=== PATIENT | female | born 1930 | race Caucasian/White ===

== ENCOUNTER 2019-12-12 13:32 | Inpatient (IN) | payer MEDICARE, BC ==
--- NOTE | 2019-12-12 14:29 | PDOC ---
History of Present Illness - General Chief Complaint: Injury Stated Complaint: Injury - History of Present Illness Initial Comments: 12/12/19 14:59 HPI: 89 y/o F with hx of HTN, melanoma in remission, recently diagnoses aortic stenosis, HLD, dementia BIBEMS because she was found down and presumed unwitnessed fall. Family at bedside providing history and stating that patient is also acutely altered and not acting appropriate. She was unable to stand after the fall and required assist. Prior to the fall, patient was taken to PCP 4 days ago for leg swelling and erythema and was diagnosed with BL LE cellulitis and prescribed with doxy and clinda. Has been taking medication, however, wound has worsened and now appears ulcerated with worsening erythema and swelling to the BL knees. Family reports chills and increased urinary freq. Denies fever, chest pain, SOB, dysuria, change in PO. PMHx: as noted above ROS: as noted SHx: Denies tobacco use; no alcohol use; no rec drugs Allergies: NKDA ROS: GENERAL/CONSTITUTIONAL: +chills. No weakness. HEAD, EYES, EARS, NOSE AND THROAT: No change in vision. No ear pain or discharge. No sore throat. CARDIOVASCULAR: No chest pain or shortness of breath RESPIRATORY: No cough, wheezing, or hemoptysis. GASTROINTESTINAL: No nausea, vomiting, diarrhea or constipation. GENITOURINARY: No dysuria, frequency, or change in urination. MUSCULOSKELETAL: No joint or muscle swelling or pain. No neck or back pain. SKIN: +rash NEUROLOGIC: No headache, vertigo, or change in strength/sensation. ENDOCRINE: No increased thirst. No abnormal weight change HEMATOLOGIC/LYMPHATIC: No anemia, easy bleeding, or history of blood clots. ALLERGIC/IMMUNOLOGIC: No hives or skin allergy. PE: GENERAL: Awake, a&ox2, agitated HEAD: 1cm forehead abrasion with mild hematoma without tpp, left cheek abrasion EYES: EOMI, sclera anicteric, conjunctiva clear ENT: Auricles normal inspection, hearing grossly normal, nares patent, oropharynx clear without exudates. Moist mucosa NECK: Normal ROM, no lymphadenopathy LUNGS: No increased work of breathing, symmetrical chest rise, clear to auscultation bilaterally, no wheezes, crackles or rhonchi HEART: Regular rate, regular rhythm, normal S1 and S2, no murmur, peripheral pulses 2+ and equal bilaterally. ABDOMEN: Soft, nondistended, nontender, normoactive bowel sounds. No guarding, no rebound. No masses. No CVAT MUSCULOSKELETAL: FROM NEUROLOGICAL: Cranial nerves II through XII grossly intact. Normal speech, normal gait, no focal sensorimotor deficits SKIN: LLE with ulcerated wound with good granulation without drainage or purulence at base of 2nd/3rd toes, significant erythema to midshin BL, pitting edema 2+ to the knees, ttp, 2+ pulses, warm to palpation Past History - Past Medical History Allergies/Adverse Reactions: Allergies Allergy/AdvReac Type Severity Reaction Status Date / Time Penicillins Allergy Severe dyspnea Verified 12/12/19 15:50 and rash Home Medications: Ambulatory Orders Clindamycin [Cleocin -] 300 mg PO TID 12/12/19 Doxycycline Hyclate 100 mg PO BID 12/12/19 COPD: No Dementia: Yes - Immunization History Immunization Up to Date: Yes - Psycho Social/Smoking Cessation Hx Smoking History: Former smoker Have you smoked in the past 12 months: No Information on smoking cessation initiated: No Hx Alcohol Use: No Drug/Substance Use Hx: No *Physical Exam - Vital Signs Last Vital Signs Temp Pulse Resp BP Pulse Ox 97 F L 92 H 19 127/86 99 12/12/19 13:50 12/12/19 13:50 12/12/19 13:50 12/12/19 13:50 12/12/19 13:50 ED Treatment Course - LABORATORY CBC & Chemistry Diagram: 12/12/19 15:00 12/12/19 15:00 Medical Decision Making - Medical Decision Making 12/12/19 18:55 89 y/o F with hx of HTN, melanoma in remission, recently diagnoses aortic stenosis, HLD, dementia BIBEMS because she was found down and presumed unwitnessed fall; also with worsening cellulitis despite doxy and clinda. VSS, AF. PE with LLE with ulcerated wound with good granulation without drainage or purulence at base of 2nd/3rd toes, significant erythema to midshin BL, pitting edema 2+ to the knees, ttp, 2+ pulses, warm to palpation. -sepsis order set, BL tib-fib and ankle-foot XR -iv vanc and aztreonam, ivf 12/12/19 18:57 patient agitated and refusing all care; discussed with daughter who is proxy and will haldol 2mg 12/12/19 18:57 patient still agitated, will give 3mg haldol 12/12/19 18:58 patient cooperative labs sent XRs performed; negative for gas on review with senior resident EKG: afib HR 108, no rosita/d 12/12/19 19:01 lactate 3.8 admitted to [facility] tele Discharge - Discharge Information Problems reviewed: Yes Clinical Impression/Diagnosis: Cellulitis Qualifiers: Site of cellulitis: extremity Site of cellulitis of extremity: lower extremity Laterality: unspecified laterality Qualified Code(s): L03.119 - Cellulitis of unspecified part of limb Atrial fibrillation Qualifiers: Atrial fibrillation type: unspecified Qualified Code(s): I48.91 - Unspecified atrial fibrillation - Follow up/Referral - Patient Discharge Instructions - Post Discharge Activity
[2019-12-12] MEDS ORDERED: AZTREONAM 1 GM in DEXTROSE 5%-WATER - 50 ML IVPB ONE (14:56)
[2019-12-12] MEDS ORDERED: VANCOMYCIN 1 GM in D5W (PRE-DOCKED) 1,000 MG/250 ML IVPB ONE (14:56)
[2019-12-12] MEDS ORDERED: SODIUM CHLORIDE 1,000 ML IV STA (14:58)
[2019-12-12] MEDS ORDERED: HALOPERIDOL LACTATE 5 MG/ML IM ONE (15:19)
[2019-12-12] MEDS ORDERED: HALOPERIDOL LACTATE 5 MG/ML ONE (15:23)
[2019-12-12] MEDS ORDERED: AZTREONAM 1 GM VIAL (RESTRICTED TO ID) ONE (15:55)
[2019-12-12] MEDS ORDERED: VANCOMYCIN 1 GRAM (PRE-DOCKED) 1,000 MG/250 ML BAG IVPB ONE (15:55)
[2019-12-12 16:44] LABS: VENOUS PC02 60.4 mmHg (38-52); VENOUS PH 7.23 (7.31-7.41)
[2019-12-12 16:45] LABS: BASO % 0.7 % (0-2.0); EOS % 3.1 % (0-4.5); HEMOGLOBIN 12.4 GM/dL (10.7-15.3); LYMPH % 16.2 % (8-40); MCH 30.5 pg (25.7-33.7); MCHC 31.8 g/dl (32.0-36.0); MEAN CELL VOLUME 95.9 fl (80-96); MEAN PLT VOLUME 8.6 fl (7.5-11.1); MONO % 9.8 % (3.8-10.2); NEUT % 70.2 % (42.8-82.8); PLATELET COUNT 235 K/MM3 (134-434); RBC 4.07 M/mm3 (3.60-5.2); RDW 17.4 % (11.6-15.6); VENOUS PO2 < 49 mmHg (28-48); WHITE BLOOD COUNT 7.9 K/mm3 (4.0-10.0)
--- NOTE | 2019-12-12 16:58 | PDOC ---
Documentation entered by Ricarda Carbajal SCRIBE, acting as scribe for Keith Robertson MD. Keith Robertson MD: This documentation has been prepared by the Solomon reynoso Brenda, SCRIBE, under my direction and personally reviewed by me in its entirety. I confirm that the documentation accurately reflects all work, treatment, procedures, and medical decision making performed by me. Attending Attestation - Resident Resident Name: Kayli Sheldon - ED Attending Attestation I have performed the following: I have examined & evaluated the patient, The case was reviewed & discussed with the resident, I agree w/resident's findings & plan, Exceptions are as noted - HPI HPI: 12/12/19 16:16 The patient is an 89 year old female with a significant PMH of HTN, HLD, melanoma, recently diagnosed aortic stenosis and dementia who presents to the ED brought in by daughter for evaluation of progressively worsening erythemetous and edemetous bilateral feet that has failed outpatient therapy. Patient is demented at baseline so was not able to give history. Patient has been on oral antibiotics for 4 days of LE cellulites. Patient denies any symptoms. Allergies: Penicillin - Physicial Exam PE: 12/12/19 16:20 Vitals: Triage vital signs reviewed General Appearance: No acute distress, well nourished, well developed Head: Atraumatic Eyes: Pupils equal reactive round, extraocular movement intact Neck: Supple; No nuchal rigidity Chest Wall: Nontender Cardiac: Regular rate and rhythm, no murmurs, no rubs, no gallops Lungs: Clear to auscultation bilateral, good air movement bilaterally Abdomen: Soft, nondistended, normal bowel sounds, nontender to palpation Genitourinary: Rectal: Exam deferred Extremities: (+) Bilateral LE Cellulites. Full range of motion to all extremities, no cyanosis, clubbing. Skin: Warm and dry, no rashes or lesions, no rash, no petechiae Neuro: AOX3 Psych: Normal mood, normal affect - Medical Decision Making 12/12/19 17:53 Given failure of p.o. antibiotics will admit to medicine for IV antibiotics and further management. 89 years old with lower extremity cellulitis progressively worsening despite p.o. antibiotics as an outpatient Patient with moderate dementia [place] ordered for anxiolysis to safely obtain medical work-up and evaluation
[2019-12-12 17:16] LABS: ALBUMIN 2.9 g/dl (3.4-5.0); BILIRUBIN,TOTAL 0.4 mg/dL (0.2-1); BLOOD UREA NITROGEN 39.3 mg/dL (7-18); CALCIUM 8.4 mg/dL (8.5-10.1); CREATININE 1.1 mg/dL (0.55-1.3); POTASSIUM 4.1 mmol/L (3.5-5.1); TOT PROT 5.5 g/dl (6.4-8.2)
[2019-12-12 17:21] LABS: INR 1.12 (0.83-1.09); PROTHROMBIN TIME (PATIENT) 13.2 SEC (9.7-13.0)
--- NOTE | 2019-12-12 19:36 | HP ---
Admitting History and Physical - Primary Care Physician PCP: Cherry Giraldo - Admission History of Present Illness: 89 y/o F with hx of HTN, melanoma in remission, recently diagnoses aortic stenosis, HLD, dementia BIBEMS because she was found down and presumed unwitnessed fall. Family at bedside providing history and stating that patient is also acutely altered and not acting appropriate. She was unable to stand after the fall and required assist. Prior to the fall, patient was taken to PCP 4 days ago for leg swelling and erythema and was diagnosed with BL LE cellulitis and prescribed with doxy and clinda. Has been taking medication, however, wound has worsened and now appears ulcerated with worsening erythema and swelling to the BL knees. Family reports chills and increased urinary freq. Denies fever, chest pain, SOB, dysuria, change in PO. - Past Medical History Cardiovascular: Yes: HTN Dermatology: Yes: Melanoma, Other - Smoking History Smoking history: Former smoker Have you smoked in the past 12 months: No - Alcohol/Substance Use Hx Alcohol Use: No Home Medications - Allergies Allergies/Adverse Reactions: Allergies Allergy/AdvReac Type Severity Reaction Status Date / Time Penicillins Allergy Severe dyspnea Verified 12/12/19 15:50 and rash - Home Medications Home Medications: Ambulatory Orders Clindamycin [Cleocin -] 300 mg PO TID 12/12/19 Doxycycline Hyclate 100 mg PO BID 12/12/19 Physical Examination Vital Signs: Vital Signs Temperature 97.1 F L 12/12/19 18:25 Pulse Rate 88 12/12/19 18:25 Respiratory Rate 19 12/12/19 18:25 Blood Pressure 113/82 12/12/19 18:25 O2 Sat by Pulse Oximetry (%) 99 12/12/19 18:25 Constitutional: Yes: No Distress HENT: Yes: Atraumatic Neck: Yes: Supple Cardiovascular: Yes: Regular Rate and Rhythm Respiratory: Yes: CTA Bilaterally Gastrointestinal: Yes: Normal Bowel Sounds Extremities: Yes: Erythema Edema: Yes Edema: LLE: 1+, RLE: 1+ Labs: CBC, BMP 12/12/19 15:00 12/12/19 15:00 Imaging - Results X-ray: Report Reviewed Cat Scan: Report Reviewed Problem List - Problems (1) Atrial fibrillation Assessment/Plan: on BB cardio on board Code(s): I48.91 - UNSPECIFIED ATRIAL FIBRILLATION Qualifiers: Atrial fibrillation type: unspecified Qualified Code(s): I48.91 - Unspecified atrial fibrillation (2) Cellulitis Assessment/Plan: iv abx id consult Code(s): L03.90 - CELLULITIS, UNSPECIFIED Qualifiers: Site of cellulitis: extremity Site of cellulitis of extremity: lower extremity Laterality: unspecified laterality Qualified Code(s): L03.119 - Cellulitis of unspecified part of limb Assessment/Plan Laboratory Tests 12/12/19 12/12/19 12/12/19 15:00 15:00 15:00 WBC 7.9 RBC 4.07 Hgb 12.4 Hct 39.0 MCV 95.9 MCH 30.5 MCHC 31.8 L RDW 17.4 H Plt Count 235 MPV 8.6 Absolute Neuts (auto) 5.5 Neutrophils % 70.2 Lymphocytes % 16.2 Monocytes % 9.8 Eosinophils % 3.1 Basophils % 0.7 Nucleated RBC % 0 PT with INR 13.20 H INR 1.12 H PTT (Actin FS) 31.0 VBG pH POC VBG pCO2 POC VBG pO2 VBG HCO3 VBG O2 Sat (Andrew) VBG Base Excess Sodium 141 Potassium 4.1 Chloride 110 H Carbon Dioxide 24 Anion Gap 8 BUN 39.3 H Creatinine 1.1 Est GFR (CKD-EPI)AfAm 51.91 Est GFR (CKD-EPI)NonAf 44.79 Random Glucose 96 Lactic Acid Calcium 8.4 L Total Bilirubin 0.4 AST 35 ALT 32 Alkaline Phosphatase 79 Troponin I 0.04 Total Protein 5.5 L Albumin 2.9 L 12/12/19 12/12/19 15:00 15:00 WBC RBC Hgb Hct MCV MCH MCHC RDW Plt Count MPV Absolute Neuts (auto) Neutrophils % Lymphocytes % Monocytes % Eosinophils % Basophils % Nucleated RBC % PT with INR INR PTT (Actin FS) VBG pH 7.23 L POC VBG pCO2 60.4 H POC VBG pO2 < 49 H VBG HCO3 24.2 VBG O2 Sat (Andrew) 45.4 L VBG Base Excess -3.9 L Sodium Potassium Chloride Carbon Dioxide Anion Gap BUN Creatinine Est GFR (CKD-EPI)AfAm Est GFR (CKD-EPI)NonAf Random Glucose Lactic Acid 3.8 H* Calcium Total Bilirubin AST ALT Alkaline Phosphatase Troponin I Total Protein Albumin Active Medications Generic Name Dose Route Start Last Admin Trade Name Freq PRN Reason Stop Dose Admin Heparin Sodium (Porcine) 5,000 unit 12/12/19 22:00 Heparin - SQ BID IKE Active Medications Generic Name Dose Route Start Last Admin Trade Name Anderq PRN Reason Stop Dose Admin Acetaminophen 650 mg 12/12/19 21:12 Tylenol - PO Q6H PRN FEVER Haloperidol 2 mg 12/12/19 22:58 12/12/19 23:39 Haldol Injection (Fast Acting) - IM 2 mg Q6H PRN Administration AGITATION Heparin Sodium (Porcine) 5,000 unit 12/12/19 22:00 12/13/19 09:55 Heparin - SQ 5,000 unit BID IKE Administration Aztreonam 1 gm/ Dextrose 50 mls @ 100 mls/hr 12/13/19 12:45 12/13/19 13:37 IVPB 100 mls/hr Q8H-IV IKE Administration Protocol Metoprolol Tartrate 25 mg 12/13/19 15:45 12/13/19 16:15 Lopressor - PO 25 mg BID IKE Administration Metoprolol Tartrate 5 mg 12/13/19 15:36 Lopressor Injection - IVPUSH Q4H PRN TACHYCARDIA
[2019-12-12] MEDS ORDERED: ACETAMINOPHEN 325 MG TABLET (FP) PO PRN (21:12)
[2019-12-12] MEDS: HEPARIN NA (PORCINE) 5,000 UNITS/ML 1ML VIAL SQ SCH (23:38)
[2019-12-12] MEDS: HALOPERIDOL LACTATE 5 MG/ML IM PRN (23:39)
[2019-12-12] MEDS ORDERED: LORazepam 2 MG/ML SDV VIAL IM STA (23:59)
[2019-12-13] MEDS ORDERED: METOPROLOL TARTRATE 5 MG/5 ML VIAL IVPUSH ONE (00:45)
[2019-12-13 02:04] VITALS: BMI 25.1
[2019-12-13 07:20] LABS: BASO % 0.9 % (0-2.0); EOS % 2.9 % (0-4.5); HEMATOCRIT 35.5 % (32.4-45.2); HEMOGLOBIN 11.7 GM/dL (10.7-15.3); LYMPH % 15.4 % (8-40); MCH 30.7 pg (25.7-33.7); MCHC 32.9 g/dl (32.0-36.0); MEAN CELL VOLUME 93.2 fl (80-96); MEAN PLT VOLUME 8.7 fl (7.5-11.1); MONO % 6.7 % (3.8-10.2); NEUT % 74.1 % (42.8-82.8); PLATELET COUNT 236 K/MM3 (134-434); RDW 17.5 % (11.6-15.6); WHITE BLOOD COUNT 7.8 K/mm3 (4.0-10.0)
[2019-12-13 08:05] LABS: ALBUMIN 2.7 g/dl (3.4-5.0); BILIRUBIN,TOTAL 0.6 mg/dL (0.2-1); BLOOD UREA NITROGEN 36.7 mg/dL (7-18); CALCIUM 8.1 mg/dL (8.5-10.1); CREATININE 1.1 mg/dL (0.55-1.3); POTASSIUM 3.9 mmol/L (3.5-5.1); TOT PROT 5.1 g/dl (6.4-8.2)
[2019-12-13] MEDS: HEPARIN NA (PORCINE) 5,000 UNITS/ML 1ML VIAL SQ SCH ×2 (09:55→23:30)
--- NOTE | 2019-12-13 12:03 | EKG ---
Test Reason : Blood Pressure : / mmHG Vent. Rate : 108 BPM Atrial Rate : 117 BPM P-R Int : 000 ms QRS Dur : 090 ms QT Int : 342 ms P-R-T Axes : 000 -23 172 degrees QTc Int : 458 ms ATRIAL FIBRILLATION WITH RAPID VENTRICULAR RESPONSE NONSPECIFIC T WAVE ABNORMALITY ABNORMAL ECG Confirmed by MD EDGARDO, ROSEY ([id number]) on 12/13/2019 12:03:13 PM Referred By: Confirmed By:ROSEY REYNOSO MD
--- NOTE | 2019-12-13 12:41 | CON.ID ---
Consult Consult Specialty:: infectious diseases Referred by:: Reason for Consultation:: b/l cellulititis of the legs,falls - History of Present Illness Chief Complaint: weakness,falls and swelling fo the legs History of Present Illness: 89 y/o F with hx of HTN, melanoma in remission, recently diagnoses aortic stenosis, HLD, dementia was brought to the hospital because of fall and was found down though unwitnessed She was unable to stand after the fall and required assist. Prior to the fall, patient was taken to PCP 4 days ago for leg swelling and erythema and was diagnosed with BL LE cellulitis and prescribed with doxy and clinda. Has been taking medication, however, worsening erythema and swelling Family reports chills and increased urinary freq. Denies fever, chest pain, SOB, dysuria, change in PO. - History Source History Provided By: Patient, Medical Record Limitations to Obtaining History: Dementia - Past Medical History Cardio/Vascular: Yes: HTN Dermatology: Yes: Melanoma, Other - Alcohol/Substance Use Hx Alcohol Use: No - Smoking History Smoking history: Former smoker Have you smoked in the past 12 months: No Home Medications - Allergies Allergies/Adverse Reactions: Allergies Allergy/AdvReac Type Severity Reaction Status Date / Time Penicillins Allergy Severe dyspnea Verified 12/12/19 15:50 and rash - Home Medications Home Medications: Ambulatory Orders Clindamycin [Cleocin -] 300 mg PO TID 12/12/19 Doxycycline Hyclate 100 mg PO BID 12/12/19 Review of Systems Unable to obtain ROS, reason: unable to obtain Physical Exam Vital Signs: Vital Signs Temperature 98.0 F 12/13/19 08:30 Pulse Rate 118 H 12/13/19 08:30 Respiratory Rate 18 12/13/19 08:30 Blood Pressure 136/83 12/13/19 08:30 O2 Sat by Pulse Oximetry (%) 96 12/13/19 08:30 Constitutional: Yes: Well Nourished, No Distress, Calm Cardiovascular: Yes: Pulse Irregular Respiratory: Yes: Regular, CTA Bilaterally Gastrointestinal: Yes: Normal Bowel Sounds, Soft Musculoskeletal: Yes: WNL Extremities: Yes: Erythema, Other Neurological: Yes: Alert, Oriented Psychiatric: Yes: Alert, Oriented Labs: CBC, BMP 12/13/19 05:45 12/13/19 05:45 Imaging - Results Chest X-ray: Report Reviewed, Image Reviewed X-ray: Report Reviewed, Image Reviewed Assessment/Plan Problem List - Problems (1) Atrial fibrillation Code(s): I48.91 - UNSPECIFIED ATRIAL FIBRILLATION Qualifiers: Atrial fibrillation type: unspecified Qualified Code(s): I48.91 - Unspecified atrial fibrillation (2) Cellulitis Code(s): L03.90 - CELLULITIS, UNSPECIFIED Qualifiers: Site of cellulitis: extremity Site of cellulitis of extremity: lower extremity Laterality: unspecified laterality Qualified Code(s): L03.119 - Cellulitis of unspecified part of limb swelling of the legs dementis plan will start on aztreonam elevation of the leg rest as per the team await for all cx reports awaiting for urine to be send
[2019-12-13] MEDS ORDERED: DEXTROSE 5%-WATER - 50 ML IVPB ONE ×2 (13:24→17:19)
[2019-12-13] MEDS ORDERED: AZTREONAM 1 GM VIAL (RESTRICTED TO ID) ONE ×2 (13:24→17:19)
[2019-12-13] MEDS: AZTREONAM 1 GM in DEXTROSE 5%-WATER - 50 ML IVPB SCH ×2 (13:37→17:24)
--- NOTE | 2019-12-13 15:20 | PN ---
Progress Note (short form) - Note Progress Note: Chief Complaint: Events noted, notes reviewed, patient with known organic brain syndrome/dementia unable to provide history, denies any chest pain or dyspnea, atrial fibrillation is noted with rapid ventricular response History of Present Illness: Seen and examined on telemetry. Full consult dictated Medications: Current Medications Acetaminophen (Tylenol -) 650 mg PO Q6H PRN PRN Reason: FEVER Haloperidol (Haldol Injection (Fast Acting) -) 2 mg IM Q6H PRN PRN Reason: AGITATION Last Admin: 12/12/19 23:39 Dose: 2 mg Heparin Sodium (Porcine) (Heparin -) 5,000 unit SQ BID IKE Last Admin: 12/13/19 09:55 Dose: 5,000 unit Aztreonam 1 gm/ Dextrose 50 mls @ 100 mls/hr IVPB Q8H-IV IKE; Protocol Last Admin: 12/13/19 13:37 Dose: 100 mls/hr Review of Systems Unable to obtain Vital Signs: Last Vital Signs Temp Pulse Resp BP Pulse Ox 97.3 F L 137 H 18 122/84 96 12/13/19 15:17 12/13/19 15:17 12/13/19 15:17 12/13/19 15:17 12/13/19 08:30 Intake & Output 12/10/19 12/11/19 12/12/19 12/13/19 23:59 23:59 23:59 23:59 Intake Total 1770 Balance 1770 Weight 146 lb 6.4 oz Neck: Supple Negative JVD No Bruit Respiratory: Diminished breath sounds at the bases bilaterally Cardiovascular: S1 S2 irregularly irregular grade 2/6 systolic ejection murmur Gastrointestinal: Soft Benign Normal Bowel Sounds Ext: Edema bilateral foot redness Labs: Troponin, BNP 12/12/19 15:00 Troponin I 0.04 CBC, BMP 12/13/19 05:45 12/13/19 05:45 Hepatic Panel Total Bilirubin 0.6 mg/dL (0.2-1) 12/13/19 05:45 AST 33 U/L (15-37) 12/13/19 05:45 ALT 30 U/L (13-61) 12/13/19 05:45 Alkaline Phosphatase 70 U/L (45-117) 12/13/19 05:45 Albumin 2.7 g/dl (3.4-5.0) L 12/13/19 05:45 INR, PTT INR 1.12 (0.83-1.09) H 12/12/19 15:00 Assessment/Plan ASSESSMENT: 1. Paroxysmal atrial fibrillation with rapid ventricular response [id number] score of 3-4 2. 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 Diastolic left ventricular dysfunction with clinical class 0 [place] [employer] classification left ventricular failure 4. Heart murmur related to aortic valve disease/aortic valve sclerosis- possible aortic valve stenosis/clinically unlikely to be significant 5. HTN 6. Hypercholesterolemia 7. Fall unclear if associated loss of consciousness 8. Chronic kidney disease 9. History of psoriasis/superimposed cellulitis PLAN: 1. Initiate Lopressor therapy and dose titration as needed, hemodynamics permitting 2. Considering patient's [id number] score of 3-4 anticoagulation therapy with DOAC's/Eliquis is recommended unless it is absolutely contraindicated 3. Antibiotics as per the primary team 4. Echocardiography for evaluation of left ventricular systolic function and the above-noted valvular pathology Above was reviewed in detail with patient's daughter Deborah Theodore/Telephone number [phone] Luis Menchaca M.D.
[2019-12-13] MEDS ORDERED: METOPROLOL TARTRATE 5 MG/5 ML VIAL IVPUSH PRN (15:36)
[2019-12-13] MEDS: METOPROLOL TARTRATE 25 MG TABLET (FP) PO SCH ×3 (16:15→23:47)
--- NOTE | 2019-12-13 16:25 | CONS ---
DATE OF CONSULTATION: 12/13/2019 REQUESTING PHYSICIAN: Cherry Giraldo MD CHIEF COMPLAINT: Unwitnessed fall at home, evaluation of new onset paroxysmal atrial fibrillation. HISTORY: History was obtained from the chart. Patient with known history of organic brain syndrome, dementia. No family member available. An 89-year-old female with known history of probable coronary artery disease, angina pectoris, diastolic left ventricular dysfunction with clinical class 0 [place] [employer] classification left ventricular failure. LVEF between 60%-65% on echocardiography performed March 02, 2013. Aortic stenosis sclerosis, questionable aortic valve stenosis, hypertensive cardiovascular disease, organic brain syndrome, dementia, degenerative joint disease, psoriasis. Was noted at home to have sustained a fall and was unable to ambulate in view of which was brought to [facility] Emergency Room for further evaluation and management. Upon evaluation, patient was noted to have evidence of paroxysmal atrial fibrillation with rapid ventricular response. Patient currently does not appear to be in any distress. She denies any chest discomfort. Patient denies any dyspnea. Patient denies any palpitations. No additional history is obtainable. Patient was confused and agitated last night in view of which Haldol therapy was administered. PAST MEDICAL HISTORY: Probable coronary artery disease, angina pectoris, diastolic left ventricular dysfunction with clinical class 0 [place] [employer] classification left ventricular failure, hypertensive cardiovascular disease, organism brain syndrome, dementia, degenerative joint disease, psoriasis. SOCIAL HISTORY: Nonsmoker. Social alcohol intake. FAMILY HISTORY: Positive for cerebrovascular disease. ALLERGIES: PENICILLIN. MEDICAL THERAPY: Currently includes acetaminophen 650 mg every 6 hours as needed, Haldol 2 mg intramuscular injection every 6 hours as needed, subcutaneous heparin 5000 units twice a day, aztreonam 1 g every 8 hours for bilateral foot cellulitis. REVIEW OF SYSTEMS: Unable to obtain in view of the above-noted history of organic brain syndrome. PHYSICAL EXAMINATION: Vital Signs: Blood pressure is 122/84 mmHg, pulse rate of 137 beats per minute. Head and Neck: Pupils equal, reactive to light and accommodation. Extraocular muscles are intact. Anicteric sclerae. Negative JVD. No bruits appreciated. Chest: Diminished breath sounds at the bases bilaterally. Cardiovascular: S1, S2. Irregularly irregular. Grade 2/6 systolic ejection murmur. No clicks or gallops. Abdomen: Soft, benign. Normoactive bowel sounds. Extremities: Bilateral edema. Foot redness. Electrocardiogram revealed atrial fibrillation with rapid ventricular response and nonspecific ST segment and T-wave abnormality. X-rays were noted. CBC revealed white cell count 7.8, hemoglobin 11.7, platelet count 236. INR 1.12. Basic metabolic profile revealed sodium 140, potassium 3.9, BUN 36.7, creatinine 1.1. Estimated GFR 44.79, glucose 85. ASSESSMENT: 1. Paroxysmal atrial fibrillation with rapid ventricular response, CHADS2-VASc score of 3-4. 2. Probable coronary artery disease, angina pectoris. 3. Diastolic left ventricular dysfunction with clinical class 0 [place] [employer] classification left ventricular failure. 4. Heart murmur related to aortic valve disease, aortic valve sclerosis, possible aortic valve stenosis. Clinically unlikely to be significant. 5. Hypertension. 6. Probable hypercholesterolemia. 7. Fall, unclear if associated with loss of consciousness. 8. Chronic kidney disease. 9. History of psoriasis with superimposed cellulitis. RECOMMENDATION: 1. Initiation of Lopressor therapy orally and IV Lopressor therapy administration as needed. Dose titration hemodynamics permitting. 2. Considering patient's CHADS2-VASc score of 3-4, anticoagulation therapy with Eliquis is recommended unless it is absolutely contraindicated. 3. Antibiotics as per the primary team. 4. Echocardiography for evaluation of left ventricular systolic function and the above-noted valvular pathology. Thank you for kind referral. TATO JONES M.D. [id number]
[2019-12-13 16:41] LABS: EPI CELLS 0.6 /HPF (0-5/HPF); HYALINE CASTS 2 /lpf (0-8); URINE APPEARANCE CLEAR; URINE BACTERIA 0.5 /hpf (NEGATIVE); URINE BILIRUBIN NEGATIVE (NEGATIVE); URINE COLOR YELLOW; URINE GLUCOSE (UA) NEGATIVE (NEGATIVE); URINE KETONE NEGATIVE (NEGATIVE); URINE LEUK ESTERASE NEGATIVE (NEGATIVE); URINE NITRITE NEGATIVE (NEGATIVE); URINE PROTEIN 2+ (NEGATIVE); URINE RBC 1 /hpf (0-4); URINE UROBILINOGEN 0.2 mg/dL (0.2-1.0); URINE WBC 1 /hpf (0-5)
--- NOTE | 2019-12-13 17:10 | PN ---
Progress Note, Physician - Current Medication List Current Medications: Active Medications Acetaminophen (Tylenol -) 650 mg PO Q6H PRN PRN Reason: FEVER Haloperidol (Haldol Injection (Fast Acting) -) 2 mg IM Q6H PRN PRN Reason: AGITATION Last Admin: 12/12/19 23:39 Dose: 2 mg Heparin Sodium (Porcine) (Heparin -) 5,000 unit SQ BID IKE Last Admin: 12/13/19 09:55 Dose: 5,000 unit Aztreonam 1 gm/ Dextrose 50 mls @ 100 mls/hr IVPB Q8H-IV IKE; Protocol Last Admin: 12/13/19 13:37 Dose: 100 mls/hr Metoprolol Tartrate (Lopressor -) 25 mg PO BID IKE Last Admin: 12/13/19 16:15 Dose: 25 mg Metoprolol Tartrate (Lopressor Injection -) 5 mg IVPUSH Q4H PRN PRN Reason: TACHYCARDIA - Objective Vital Signs: Vital Signs Temperature 97.3 F L 12/13/19 15:17 Pulse Rate 137 H 12/13/19 15:17 Respiratory Rate 18 12/13/19 15:17 Blood Pressure 122/84 12/13/19 15:17 O2 Sat by Pulse Oximetry (%) 96 12/13/19 08:30 Constitutional: Yes: No Distress HENT: Yes: Atraumatic Neck: Yes: Supple Cardiovascular: Yes: Regular Rate and Rhythm Respiratory: Yes: CTA Bilaterally Gastrointestinal: Yes: Normal Bowel Sounds Extremities: Yes: Other (cellulitis b/l raji) Neurological: Yes: Alert Labs: CBC, BMP 12/13/19 05:45 12/13/19 05:45 INR, PTT INR 1.12 (0.83-1.09) H 12/12/19 15:00 Problem List - Problems (1) Atrial fibrillation Assessment/Plan: on BB cardio on board Code(s): I48.91 - UNSPECIFIED ATRIAL FIBRILLATION Qualifiers: Atrial fibrillation type: unspecified Qualified Code(s): I48.91 - Unspecified atrial fibrillation (2) Cellulitis Assessment/Plan: iv abx id consult Code(s): L03.90 - CELLULITIS, UNSPECIFIED Qualifiers: Site of cellulitis: extremity Site of cellulitis of extremity: lower extremity Laterality: unspecified laterality Qualified Code(s): L03.119 - Cellulitis of unspecified part of limb (3) Dementia Assessment/Plan: not on any meds Code(s): F03.90 - UNSPECIFIED DEMENTIA WITHOUT BEHAVIORAL DISTURBANCE Qualifiers: Dementia type: unspecified type
[2019-12-13] MEDS: HALOPERIDOL LACTATE 5 MG/ML IM PRN (23:29)
[2019-12-14] MEDS ORDERED: DEXTROSE 5%-WATER - 50 ML IVPB ONE ×3 (02:12→17:01)
[2019-12-14] MEDS ORDERED: AZTREONAM 1 GM VIAL (RESTRICTED TO ID) ONE ×3 (02:12→17:01)
[2019-12-14] MEDS: AZTREONAM 1 GM in DEXTROSE 5%-WATER - 50 ML IVPB SCH ×3 (02:17→17:09)
[2019-12-14] MEDS: METOPROLOL TARTRATE 25 MG TABLET (FP) PO SCH ×3 (09:20→21:59)
[2019-12-14] MEDS: HEPARIN NA (PORCINE) 5,000 UNITS/ML 1ML VIAL SQ SCH (09:21)
--- NOTE | 2019-12-14 10:22 | PN ---
Progress Note, Physician History of Present Illness: Patient with known organic brain syndrome/dementia unable to provide history, denies any chest pain or dyspnea, remains in atrial fibrillation with rapid ventricular response. - Current Medication List Current Medications: Active Medications Acetaminophen (Tylenol -) 650 mg PO Q6H PRN PRN Reason: FEVER Haloperidol (Haldol Injection (Fast Acting) -) 2 mg IM Q6H PRN PRN Reason: AGITATION Last Admin: 12/13/19 23:29 Dose: 2 mg Heparin Sodium (Porcine) (Heparin -) 5,000 unit SQ BID IKE Last Admin: 12/14/19 09:21 Dose: 5,000 unit Aztreonam 1 gm/ Dextrose 50 mls @ 100 mls/hr IVPB Q8H-IV IKE; Protocol Last Admin: 12/14/19 09:20 Dose: 100 mls/hr Metoprolol Tartrate (Lopressor -) 25 mg PO BID IKE Last Admin: 12/14/19 09:20 Dose: 25 mg Metoprolol Tartrate (Lopressor Injection -) 5 mg IVPUSH Q4H PRN PRN Reason: TACHYCARDIA Last Admin: 12/13/19 18:15 Dose: 5 mg - Objective Vital Signs: Vital Signs Temperature 97.6 F 12/14/19 10:00 Pulse Rate 126 H 12/14/19 10:00 Respiratory Rate 18 12/14/19 10:00 Blood Pressure 149/93 12/14/19 10:00 O2 Sat by Pulse Oximetry (%) 98 12/13/19 21:00 Constitutional: Yes: No Distress, Calm, Thin Neck: Yes: Supple Cardiovascular: Yes: Tachycardia, Pulse Irregular Respiratory: Yes: Regular, Diminished Gastrointestinal: Yes: Normal Bowel Sounds, Soft Edema: No Labs: CBC, BMP 12/13/19 05:45 12/13/19 05:45 INR, PTT INR 1.12 (0.83-1.09) H 12/12/19 15:00 - ....Imaging EKG: Report Reviewed (Tele: Rapid afib) Problem List - Problems (1) Dementia Code(s): F03.90 - UNSPECIFIED DEMENTIA WITHOUT BEHAVIORAL DISTURBANCE Qualifiers: Dementia type: unspecified type (2) Atrial fibrillation Code(s): I48.91 - UNSPECIFIED ATRIAL FIBRILLATION Qualifiers: Atrial fibrillation type: unspecified Qualified Code(s): I48.91 - Unspecified atrial fibrillation (3) Cellulitis Code(s): L03.90 - CELLULITIS, UNSPECIFIED Qualifiers: Site of cellulitis: extremity Site of cellulitis of extremity: lower extremity Laterality: unspecified laterality Qualified Code(s): L03.119 - Cellulitis of unspecified part of limb Assessment/Plan 1. Paroxysmal atrial fibrillation with rapid ventricular response [id number] score of 3-4 2. 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 Diastolic left ventricular dysfunction with clinical class 0 [place] [employer] classification left ventricular failure 4. Heart murmur related to aortic valve disease/aortic valve sclerosis- possible aortic valve stenosis/clinically unlikely to be significant 5. HTN 6. Hypercholesterolemia 7. Fall unclear if associated loss of consciousness 8. Chronic kidney disease 9. History of psoriasis with superimposed LE cellulitis PLAN: 1. Increase Lopressor 25 tid with dose titration as needed, hemodynamics permitting 2. Considering patient's [id number] score of 3-4 anticoagulation therapy with DOAC's/Eliquis 2.5 bid is recommended 3. Empiric antibiotics as per the primary team 4. Echocardiography for evaluation of left ventricular systolic function and the above-noted valvular pathology Above was reviewed in detail with patient's daughter Deborah Theodore/Telephone number [phone]
--- NOTE | 2019-12-14 12:02 | PN ---
Progress Note, Physician History of Present Illness: stable no new issues - Current Medication List Current Medications: Active Medications Acetaminophen (Tylenol -) 650 mg PO Q6H PRN PRN Reason: FEVER Haloperidol (Haldol Injection (Fast Acting) -) 2 mg IM Q6H PRN PRN Reason: AGITATION Last Admin: 12/13/19 23:29 Dose: 2 mg Heparin Sodium (Porcine) (Heparin -) 5,000 unit SQ BID IKE Last Admin: 12/14/19 09:21 Dose: 5,000 unit Aztreonam 1 gm/ Dextrose 50 mls @ 100 mls/hr IVPB Q8H-IV IKE; Protocol Last Admin: 12/14/19 09:20 Dose: 100 mls/hr Metoprolol Tartrate (Lopressor -) 25 mg PO BID IKE Last Admin: 12/14/19 09:20 Dose: 25 mg Metoprolol Tartrate (Lopressor Injection -) 5 mg IVPUSH Q4H PRN PRN Reason: TACHYCARDIA Last Admin: 12/13/19 18:15 Dose: 5 mg - Objective Vital Signs: Vital Signs Temperature 97.6 F 12/14/19 10:00 Pulse Rate 126 H 12/14/19 10:00 Respiratory Rate 18 12/14/19 10:00 Blood Pressure 149/93 12/14/19 10:00 O2 Sat by Pulse Oximetry (%) 98 12/13/19 21:00 Constitutional: Yes: No Distress, Calm Cardiovascular: Yes: S1, S2 Respiratory: Yes: Regular, CTA Bilaterally Gastrointestinal: Yes: Normal Bowel Sounds, Soft Musculoskeletal: Yes: WNL Extremities: Yes: Erythema, Other Neurological: Yes: Alert, Oriented Psychiatric: Yes: Alert, Oriented Labs: CBC, BMP 12/13/19 05:45 12/13/19 05:45 INR, PTT INR 1.12 (0.83-1.09) H 12/12/19 15:00 Assessment/Plan Problem List - Problems (1) Atrial fibrillation Code(s): I48.91 - UNSPECIFIED ATRIAL FIBRILLATION Qualifiers: Atrial fibrillation type: unspecified Qualified Code(s): I48.91 - Unspecified atrial fibrillation (2) Cellulitis Code(s): L03.90 - CELLULITIS, UNSPECIFIED Qualifiers: Site of cellulitis: extremity Site of cellulitis of extremity: lower extremity Laterality: unspecified laterality Qualified Code(s): L03.119 - Cellulitis of unspecified part of limb swelling of the legs dementis plan ct abx elevation of the legs rest as per the team
--- NOTE | 2019-12-14 13:27 | PN ---
Progress Note, Physician - Current Medication List Current Medications: Active Medications Acetaminophen (Tylenol -) 650 mg PO Q6H PRN PRN Reason: FEVER Apixaban (Eliquis -) 2.5 mg PO BID IKE Haloperidol (Haldol Injection (Fast Acting) -) 2 mg IM Q6H PRN PRN Reason: AGITATION Last Admin: 12/13/19 23:29 Dose: 2 mg Aztreonam 1 gm/ Dextrose 50 mls @ 100 mls/hr IVPB Q8H-IV IKE; Protocol Last Admin: 12/14/19 09:20 Dose: 100 mls/hr Metoprolol Tartrate (Lopressor Injection -) 5 mg IVPUSH Q4H PRN PRN Reason: TACHYCARDIA Last Admin: 12/13/19 18:15 Dose: 5 mg Metoprolol Tartrate (Lopressor -) 25 mg PO TID IKE Last Admin: 12/14/19 13:18 Dose: 25 mg - Objective Vital Signs: Vital Signs Temperature 97.6 F 12/14/19 10:00 Pulse Rate 126 H 12/14/19 10:00 Respiratory Rate 18 12/14/19 10:00 Blood Pressure 149/93 12/14/19 10:00 O2 Sat by Pulse Oximetry (%) 95 12/14/19 09:00 Constitutional: Yes: No Distress HENT: Yes: Atraumatic Neck: Yes: Supple Cardiovascular: Yes: Regular Rate and Rhythm Respiratory: Yes: CTA Bilaterally Gastrointestinal: Yes: Normal Bowel Sounds Extremities: Yes: Other (cellulitis improving) Neurological: Yes: Alert Labs: CBC, BMP 12/13/19 05:45 12/13/19 05:45 INR, PTT INR 1.12 (0.83-1.09) H 12/12/19 15:00 Problem List - Problems (1) Atrial fibrillation Assessment/Plan: on BB on Ac Code(s): I48.91 - UNSPECIFIED ATRIAL FIBRILLATION Qualifiers: Atrial fibrillation type: unspecified Qualified Code(s): I48.91 - Unspecified atrial fibrillation (2) Cellulitis Assessment/Plan: iv abx id consult Code(s): L03.90 - CELLULITIS, UNSPECIFIED Qualifiers: Site of cellulitis: extremity Site of cellulitis of extremity: lower extremity Laterality: unspecified laterality Qualified Code(s): L03.119 - Cellulitis of unspecified part of limb (3) Dementia Code(s): F03.90 - UNSPECIFIED DEMENTIA WITHOUT BEHAVIORAL DISTURBANCE Qualifiers: Dementia type: unspecified type Assessment/Plan spoke to daughter FLAKO RUTLEDGE IN DETAIL [phone]
--- NOTE | 2019-12-14 15:28 | ECHO ---
Name: TERESITA KHAN Exam:Adult Echocardiogram Study Date: 12/14/2019 10:55 AM Age: 89 yrs Reason For Study: A-Fib Height: 64 in Weight: 146 lb BSA: 1.7 m2 MMode/2D Measurements & Calculations IVSd: 1.1 cm Ao root diam: 2.9 cm LVIDd: 4.3 cm LA dimension: 3.3 cm LVIDs: 3.7 cm LVPWd: 1.4 cm EDV(Teich): 84.2 ml LVOT diam: 2.0 cm ESV(Teich): 59.0 ml LAV (MOD-bp): 88.8 ml Doppler Measurements & Calculations MV V2 max: 139.0 cm/sec MV E max angélica: 148.0 cm/sec MV max P.7 mmHg MV A max angélica: 74.9 cm/sec MV V2 mean: 94.4 cm/sec MV E/A: 2.0 MV mean P.1 mmHg MV dec time: 0.13 sec MV V2 VTI: 15.0 cm Ao V2 max: 212.8 cm/sec AI max angélica: 428.9 cm/sec Ao max P.1 mmHg AI max P.7 mmHg Ao V2 mean: 142.4 cm/sec AI dec slope: 408.9 cm/sec2 Ao mean P.6 mmHg Ao V2 VTI: 36.6 cm AI P1/2t: 307.3 msec LEE(V,D): 1.2 cm2 LV V1 max P.4 mmHg MR max angélica: 490.1 cm/sec LV V1 max: 78.1 cm/sec MR max P.1 mmHg TR max angélica: 212.3 cm/sec PA V2 max: 76.0 cm/sec TR max P.5 mmHg PA max P.3 mmHg PI Vmax: 114.0 cm/sec Procedure A two-dimensional transthoracic echocardiogram with color flow and Doppler was performed. Left Ventricle The left ventricular size, thickness and function are normal. The left ventricular ejection fraction is normal. Regional wall motion abnormalities cannot be excluded due to limited visualization. Right Ventricle The right ventricle is not well visualized. Atria The left atrium is severely dilated. The right atrium is severely dilated. 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 Mitral Valve There is moderate mitral valve thickening. Cannot exclude MS. There is moderate to severe mitral regurgitation. Tricuspid Valve There is mild to moderate tricuspid valve thickening. There is no tricuspid stenosis. There is severe tricuspid regurgitation. Right ventricular systolic pressure is normal. Aortic Valve The aortic valve is trileaflet. There is moderate aortic valve thickening. There is moderate aortic sclerosis.;. Hemodynamically significant valvular aortic stenosis cannot be excluded. Moderate to sev ere aortic regurgitation. Pulmonic Valve The pulmonic valve is not well visualized. There is no pulmonic valvular stenosis. Trace pulmonic jacinto vular regurgitation. Interpretation Summary There is moderate to severe mitral regurgitation. There is moderate mitral valve thickening. Right ventricular systolic pressure is normal. The aortic valve is trileaflet. There is moderate aortic valve thickening. There is moderate aortic sclerosis.; There is severe tricuspid regurgitation. The left atrium is severely dilated. The right atrium is severely dilated. The atrial septum is aneurysmal. Moderate to severe aortic regurgitation. Hemodynamically significant valvular aortic stenosis cannot be excluded. Cannot exclude MS The left ventricular size, thickness and function are normal The left ventricular ejection fraction is normal. Regional wall motion abnormalities cannot be excluded due to limited visualization. MD Jonathan Andrea 12/14/2019 03:27 PM
[2019-12-14] MEDS: APIXABAN 2.5 MG TABLET PO SCH (21:59)
--- NOTE | 2019-12-14 22:21 | CON.NEURO ---
Consult Consult Specialty:: NEUROLOGY-STACEY MARTIN - History of Present Illness History of Present Illness: 89 y/o F with hx of HTN, melanoma in remission, recently diagnoses aortic stenosis, HLD, dementia BIBEMS because she was found down and presumed unwitnessed fall. Family at bedside providing history and stating that patient is also acutely altered and not acting appropriate. She was unable to stand after the fall and required assist. Prior to the fall, patient was taken to PCP 4 days ago for leg swelling and erythema and was diagnosed with BL LE cellulitis and prescribed with doxy and clinda. Has been taking medication, however, wound has worsened and now appears ulcerated with worsening erythema and swelling to the BL knees. Family reports chills and increased urinary freq. Denies fever, chest pain, SOB, dysuria, change in PO. Pt. has had a dx. of dementia but cognitive decline has accelerated during past one year. she is unable to relate detailed hx. Keeps repeating she wants to go home, that she came to the hospital because "someone was following me". - Past Medical History Cardio/Vascular: Yes: HTN Dermatology: Yes: Melanoma, Other - Alcohol/Substance Use Hx Alcohol Use: No - Smoking History Smoking history: Former smoker Have you smoked in the past 12 months: No Home Medications - Allergies Allergies/Adverse Reactions: Allergies Allergy/AdvReac Type Severity Reaction Status Date / Time Penicillins Allergy Severe dyspnea Verified 12/12/19 15:50 and rash - Home Medications Home Medications: Ambulatory Orders Clindamycin [Cleocin -] 300 mg PO TID 12/12/19 Doxycycline Hyclate 100 mg PO BID 12/12/19 Physical Exam-Neuro Vital Signs: Vital Signs Temperature 97.5 F L 12/14/19 14:00 Pulse Rate 109 H 12/14/19 14:00 Respiratory Rate 18 12/14/19 14:00 Blood Pressure 137/69 12/14/19 14:00 O2 Sat by Pulse Oximetry (%) 95 12/14/19 09:00 Labs: CBC, BMP 12/13/19 05:45 12/13/19 05:45 INR, PTT INR 1.12 (0.83-1.09) H 12/12/19 15:00 - Neuro Exam Level Of Consciousness: Yes: Alert, Oriented to Person Eyes: Yes: PERRL Speech: Other (+ tangential speech) Dominant Hand: Right Mini Mental Exam: + paranoid delusions, + markedly impaired attention/ concentration. STM-0/3. MMSE-7(skewed 2/2 supervening delirium). Cranial Nerves II-XII Intact: Yes Gag: Present DTR's: 1+ Left Bicep, 1+ Right Bicep, 1+ Left Tricep, 1+ Right Tricep, 1+ Left Brachioradialis, 1+ Right Brachioradialis, 1+ Left Achilles, 1+ Right Achilles Babinski: Present (bilat) Motor Strength: 5/5: Left Arm, Right Arm, Left Leg, Right Leg Gait: Other (refused to walk) Assessment/Plan Pt. has a dementia, her mental status is worse 2/2 supervening encephalopathy due to infection/metabolioc derangements. Suggest-B12 level, would place on Namenda 5mg bid after her encephalopathy has improved-5mg bid and increase to 10mg bid after a month. Difficult to tell whether dementia is AD(likely) vs Lewy Body dz. namenda may target agitation and possibly delusions too. Thank you, Aida Gutiérrez MD
[2019-12-14] MEDS: HALOPERIDOL LACTATE 5 MG/ML IM PRN (22:47)
[2019-12-15] MEDS ORDERED: DEXTROSE 5%-WATER - 50 ML IVPB ONE ×3 (00:50→18:22)
[2019-12-15] MEDS ORDERED: AZTREONAM 1 GM VIAL (RESTRICTED TO ID) ONE ×3 (00:50→18:22)
[2019-12-15] MEDS: AZTREONAM 1 GM in DEXTROSE 5%-WATER - 50 ML IVPB SCH ×3 (01:35→18:26)
[2019-12-15] MEDS: METOPROLOL TARTRATE 25 MG TABLET (FP) PO SCH ×3 (06:47→21:14)
--- NOTE | 2019-12-15 10:08 | PN ---
Progress Note, Physician History of Present Illness: Patient with known organic brain syndrome/dementia unable to provide history, denies any chest pain or dyspnea, remains in atrial fibrillation with rapid ventricular response. - Current Medication List Current Medications: Active Medications Acetaminophen (Tylenol -) 650 mg PO Q6H PRN PRN Reason: FEVER Apixaban (Eliquis -) 2.5 mg PO BID IKE Last Admin: 12/14/19 21:59 Dose: 2.5 mg Haloperidol (Haldol Injection (Fast Acting) -) 2 mg IM Q6H PRN PRN Reason: AGITATION Last Admin: 12/14/19 22:47 Dose: 2 mg Aztreonam 1 gm/ Dextrose 50 mls @ 100 mls/hr IVPB Q8H-IV IKE; Protocol Last Admin: 12/15/19 01:35 Dose: Not Given Metoprolol Tartrate (Lopressor Injection -) 5 mg IVPUSH Q4H PRN PRN Reason: TACHYCARDIA Last Admin: 12/13/19 18:15 Dose: 5 mg Metoprolol Tartrate (Lopressor -) 25 mg PO TID IKE Last Admin: 12/15/19 06:47 Dose: 25 mg - Objective Vital Signs: Vital Signs Temperature 97.4 F L 12/14/19 22:00 Pulse Rate 92 H 12/15/19 06:00 Respiratory Rate 20 12/15/19 06:00 Blood Pressure 150/78 12/15/19 06:00 O2 Sat by Pulse Oximetry (%) 100 12/14/19 21:00 Constitutional: Yes: No Distress, Calm, Thin Neck: Yes: Supple Cardiovascular: Yes: Tachycardia, Pulse Irregular, Murmur (2/6 SM) Respiratory: Yes: Regular, CTA Bilaterally Gastrointestinal: Yes: Normal Bowel Sounds, Soft Edema: No Labs: CBC, BMP 12/13/19 05:45 12/13/19 05:45 INR, PTT INR 1.12 (0.83-1.09) H 12/12/19 15:00 - ....Imaging Chest X-ray: Pending Problem List - Problems (1) Dementia Code(s): F03.90 - UNSPECIFIED DEMENTIA WITHOUT BEHAVIORAL DISTURBANCE Qualifiers: Dementia type: unspecified type (2) Atrial fibrillation Code(s): I48.91 - UNSPECIFIED ATRIAL FIBRILLATION Qualifiers: Atrial fibrillation type: unspecified Qualified Code(s): I48.91 - Unspecified atrial fibrillation (3) Cellulitis Code(s): L03.90 - CELLULITIS, UNSPECIFIED Qualifiers: Site of cellulitis: extremity Site of cellulitis of extremity: lower extremity Laterality: unspecified laterality Qualified Code(s): L03.119 - Cellulitis of unspecified part of limb Assessment/Plan 12/14/2019 Echocardiography: Normal LV size and fxn, , mod-severe MR, severe TR , severe DAMEON, ALEXIS, mod-severe AR, unable to exclude hemodynamically sig 1. Paroxysmal atrial fibrillation with rapid ventricular response [id number] score of 3-4 2. 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 Diastolic dysfunction with valvular cardiomyopathy, euvolemic 4. Mod-severe MR, severe TR, mod-severe AR, unable to exclude hemodynamically sig 5. HTN 6. Hypercholesterolemia 7. 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 Chronic kidney disease 9. History of psoriasis with superimposed LE cellulitis PLAN: 1. Increased results Lopressor 25 tid with dose titration as needed, hemodynamics permitting 2. Considering patient's [id number] score of 3-4 anticoagulation therapy with DOAC's/Eliquis 2.5 bid is recommended 3. Empiric antibiotics as per the primary team 4. F/u CXR
[2019-12-15] MEDS: APIXABAN 2.5 MG TABLET PO SCH ×2 (12:01→21:14)
--- NOTE | 2019-12-15 13:20 | PN ---
Progress Note, Physician History of Present Illness: stable improving - Current Medication List Current Medications: Active Medications Acetaminophen (Tylenol -) 650 mg PO Q6H PRN PRN Reason: FEVER Apixaban (Eliquis -) 2.5 mg PO BID [facility] Last Admin: 12/14/19 21:59 Dose: 2.5 mg Haloperidol (Haldol Injection (Fast Acting) -) 2 mg IM Q6H PRN PRN Reason: AGITATION Last Admin: 12/14/19 22:47 Dose: 2 mg Aztreonam 1 gm/ Dextrose 50 mls @ 100 mls/hr IVPB Q8H-IV IKE; Protocol Last Admin: 12/15/19 01:35 Dose: Not Given Metoprolol Tartrate (Lopressor Injection -) 5 mg IVPUSH Q4H PRN PRN Reason: TACHYCARDIA Last Admin: 12/13/19 18:15 Dose: 5 mg Metoprolol Tartrate (Lopressor -) 25 mg PO TID IKE Last Admin: 12/15/19 06:47 Dose: 25 mg - Objective Vital Signs: Vital Signs Temperature 98.5 F 12/15/19 10:00 Pulse Rate 68 12/15/19 10:00 Respiratory Rate 20 12/15/19 10:00 Blood Pressure 124/68 12/15/19 10:00 O2 Sat by Pulse Oximetry (%) 97 12/15/19 09:00 Constitutional: Yes: No Distress, Calm Cardiovascular: Yes: S1, S2 Respiratory: Yes: Regular, CTA Bilaterally Gastrointestinal: Yes: Normal Bowel Sounds, Soft Musculoskeletal: Yes: Other Extremities: Yes: Erythema Neurological: Yes: Alert, Oriented Psychiatric: Yes: Alert, Oriented Labs: CBC, BMP 12/13/19 05:45 12/13/19 05:45 INR, PTT INR 1.12 (0.83-1.09) H 12/12/19 15:00 Assessment/Plan Problem List - Problems (1) Atrial fibrillation Code(s): I48.91 - UNSPECIFIED ATRIAL FIBRILLATION Qualifiers: Atrial fibrillation type: unspecified Qualified Code(s): I48.91 - Unspecified atrial fibrillation (2) Cellulitis Code(s): L03.90 - CELLULITIS, UNSPECIFIED Qualifiers: Site of cellulitis: extremity Site of cellulitis of extremity: lower extremity Laterality: unspecified laterality Qualified Code(s): L03.119 - Cellulitis of unspecified part of limb swelling of the legs dementis plan ct abx elevation of the legs rest as per the team patient improving
--- NOTE | 2019-12-15 15:02 | PN ---
Progress Note, Physician - Current Medication List Current Medications: Active Medications Acetaminophen (Tylenol -) 650 mg PO Q6H PRN PRN Reason: FEVER Apixaban (Eliquis -) 2.5 mg PO BID [facility] Last Admin: 12/14/19 21:59 Dose: 2.5 mg Haloperidol (Haldol Injection (Fast Acting) -) 2 mg IM Q6H PRN PRN Reason: AGITATION Last Admin: 12/14/19 22:47 Dose: 2 mg Aztreonam 1 gm/ Dextrose 50 mls @ 100 mls/hr IVPB Q8H-IV IKE; Protocol Last Admin: 12/15/19 01:35 Dose: Not Given Metoprolol Tartrate (Lopressor Injection -) 5 mg IVPUSH Q4H PRN PRN Reason: TACHYCARDIA Last Admin: 12/13/19 18:15 Dose: 5 mg Metoprolol Tartrate (Lopressor -) 25 mg PO TID IKE Last Admin: 12/15/19 06:47 Dose: 25 mg - Objective Vital Signs: Vital Signs Temperature 98.5 F 12/15/19 10:00 Pulse Rate 68 12/15/19 10:00 Respiratory Rate 12/15/19 10:00 Blood Pressure 124/68 12/15/19 10:00 O2 Sat by Pulse Oximetry (%) 97 12/15/19 09:00 Constitutional: Yes: No Distress HENT: Yes: Atraumatic Neck: Yes: Supple Cardiovascular: Yes: Regular Rate and Rhythm Respiratory: Yes: CTA Bilaterally Gastrointestinal: Yes: Normal Bowel Sounds Extremities: Yes: Other (cellulitis improving) Neurological: Yes: Alert Labs: CBC, BMP 12/13/19 05:45 12/13/19 05:45 INR, PTT INR 1.12 (0.83-1.09) H 12/12/19 15:00 Problem List - Problems (1) Atrial fibrillation Assessment/Plan: on BB on Ac Code(s): I48.91 - UNSPECIFIED ATRIAL FIBRILLATION Qualifiers: Atrial fibrillation type: unspecified Qualified Code(s): I48.91 - Unspecified atrial fibrillation (2) Cellulitis Assessment/Plan: iv abx id consult Code(s): L03.90 - CELLULITIS, UNSPECIFIED Qualifiers: Site of cellulitis: extremity Site of cellulitis of extremity: lower extremity Laterality: unspecified laterality Qualified Code(s): L03.119 - Cellulitis of unspecified part of limb (3) Dementia Assessment/Plan: neuro consult done Code(s): F03.90 - UNSPECIFIED DEMENTIA WITHOUT BEHAVIORAL DISTURBANCE Qualifiers: Dementia type: unspecified type
[2019-12-15] MEDS: HALOPERIDOL LACTATE 5 MG/ML IM PRN (23:05)
[2019-12-16] MEDS ORDERED: AZTREONAM 1 GM VIAL (RESTRICTED TO ID) ONE ×3 (03:07→17:22)
[2019-12-16] MEDS ORDERED: DEXTROSE 5%-WATER - 50 ML IVPB ONE ×3 (03:07→17:22)
[2019-12-16] MEDS: AZTREONAM 1 GM in DEXTROSE 5%-WATER - 50 ML IVPB SCH ×3 (03:33→17:41)
[2019-12-16] MEDS: METOPROLOL TARTRATE 25 MG TABLET (FP) PO SCH ×3 (06:10→21:35)
--- NOTE | 2019-12-16 10:03 | PN ---
Progress Note, Physician History of Present Illness: Patient with known organic brain syndrome/dementia unable to provide history, denies any chest pain or dyspnea, atrial fibrillation now with improved ventricular response after Lopressor uptitration. - Current Medication List Current Medications: Active Medications Acetaminophen (Tylenol -) 650 mg PO Q6H PRN PRN Reason: FEVER Apixaban (Eliquis -) 2.5 mg PO BID [facility] Last Admin: 12/15/19 21:14 Dose: 2.5 mg Haloperidol (Haldol Injection (Fast Acting) -) 2 mg IM Q6H PRN PRN Reason: AGITATION Last Admin: 12/15/19 23:05 Dose: 2 mg Aztreonam 1 gm/ Dextrose 50 mls @ 100 mls/hr IVPB Q8H-IV IKE; Protocol Last Admin: 12/16/19 03:33 Dose: 100 mls/hr Metoprolol Tartrate (Lopressor Injection -) 5 mg IVPUSH Q4H PRN PRN Reason: TACHYCARDIA Last Admin: 12/13/19 18:15 Dose: 5 mg Metoprolol Tartrate (Lopressor -) 25 mg PO TID IKE Last Admin: 12/16/19 06:10 Dose: Not Given - Objective Vital Signs: Vital Signs Temperature 98.2 F 12/16/19 02:00 Pulse Rate 97 H 12/16/19 06:00 Respiratory Rate 22 H 12/16/19 06:00 Blood Pressure 149/76 12/16/19 06:00 O2 Sat by Pulse Oximetry (%) 96 12/15/19 19:55 Constitutional: Yes: No Distress, Calm, Thin Neck: Yes: Supple Cardiovascular: Yes: Pulse Irregular, Murmur (2/6 SM) Respiratory: Yes: Regular, CTA Bilaterally Gastrointestinal: Yes: Normal Bowel Sounds, Soft Edema: No Labs: CBC, BMP 12/13/19 05:45 12/13/19 05:45 INR, PTT INR 1.12 (0.83-1.09) H 12/12/19 15:00 - ....Imaging Chest X-ray: Report Reviewed (Bibasilar ATX) EKG: Report Reviewed (Tele: Rate-controlled afib) Problem List - Problems (1) Dementia Code(s): F03.90 - UNSPECIFIED DEMENTIA WITHOUT BEHAVIORAL DISTURBANCE Qualifiers: Dementia type: unspecified type (2) Atrial fibrillation Code(s): I48.91 - UNSPECIFIED ATRIAL FIBRILLATION Qualifiers: Atrial fibrillation type: unspecified Qualified Code(s): I48.91 - Unspecified atrial fibrillation (3) Cellulitis Code(s): L03.90 - CELLULITIS, UNSPECIFIED Qualifiers: Site of cellulitis: extremity Site of cellulitis of extremity: lower extremity Laterality: unspecified laterality Qualified Code(s): L03.119 - Cellulitis of unspecified part of limb Assessment/Plan 12/14/2019 Echocardiography: Normal LV size and fxn, , mod-severe MR, severe TR , severe DAMEON, ALEXIS, mod-severe AR, unable to exclude hemodynamically sig 1. Paroxysmal atrial fibrillation with rapid ventricular response [id number] score of 3-4 2. 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 Diastolic dysfunction with valvular cardiomyopathy, euvolemic 4. Mod-severe MR, severe TR, mod-severe AR, unable to exclude hemodynamically sig 5. HTN 6. Hypercholesterolemia 7. 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 Chronic kidney disease 9. History of psoriasis with superimposed LE cellulitis PLAN: 1. Continue Lopressor 25 tid with dose titration as needed, hemodynamics permitting 2. Considering patient's [id number] score of 3-4 anticoagulation therapy with DOAC's/Eliquis 2.5 bid is recommended 3. Empiric antibiotics as per the primary team
[2019-12-16] MEDS: APIXABAN 2.5 MG TABLET PO SCH ×2 (10:35→21:35)
--- NOTE | 2019-12-16 11:38 | PN ---
Progress Note, Physician History of Present Illness: says she feels better leg has started to improve still a little red - Current Medication List Current Medications: Active Medications Acetaminophen (Tylenol -) 650 mg PO Q6H PRN PRN Reason: FEVER Apixaban (Eliquis -) 2.5 mg PO BID I[facility] Last Admin: 12/16/19 10:35 Dose: 2.5 mg Haloperidol (Haldol Injection (Fast Acting) -) 2 mg IM Q6H PRN PRN Reason: AGITATION Last Admin: 12/15/19 23:05 Dose: 2 mg Aztreonam 1 gm/ Dextrose 50 mls @ 100 mls/hr IVPB Q8H-IV IKE; Protocol Last Admin: 12/16/19 10:35 Dose: 100 mls/hr Metoprolol Tartrate (Lopressor Injection -) 5 mg IVPUSH Q4H PRN PRN Reason: TACHYCARDIA Last Admin: 12/13/19 18:15 Dose: 5 mg Metoprolol Tartrate (Lopressor -) 25 mg PO TID IKE Last Admin: 12/16/19 06:10 Dose: Not Given - Objective Vital Signs: Vital Signs Temperature 98.2 F 12/16/19 02:00 Pulse Rate 97 H 12/16/19 06:00 Respiratory Rate 22 H 12/16/19 06:00 Blood Pressure 149/76 12/16/19 06:00 O2 Sat by Pulse Oximetry (%) 96 12/15/19 19:55 Constitutional: Yes: No Distress, Calm Cardiovascular: Yes: S1, S2 Respiratory: Yes: Regular, CTA Bilaterally Gastrointestinal: Yes: Normal Bowel Sounds, Soft Musculoskeletal: Yes: Other Extremities: Yes: Erythema (of the legs) Neurological: Yes: Alert, Confusion, Other Labs: CBC, BMP 12/13/19 05:45 12/13/19 05:45 INR, PTT INR 1.12 (0.83-1.09) H 12/12/19 15:00 Assessment/Plan Problem List - Problems (1) Atrial fibrillation Code(s): I48.91 - UNSPECIFIED ATRIAL FIBRILLATION Qualifiers: Atrial fibrillation type: unspecified Qualified Code(s): I48.91 - Unspecified atrial fibrillation (2) Cellulitis Code(s): L03.90 - CELLULITIS, UNSPECIFIED Qualifiers: Site of cellulitis: extremity Site of cellulitis of extremity: lower extremity Laterality: unspecified laterality Qualified Code(s): L03.119 - Cellulitis of unspecified part of limb swelling of the legs dementia plan ct abx elevation of the legs rest as per the team patient improving zulma deescalte soon
--- NOTE | 2019-12-16 18:23 | PN ---
Progress Note, Physician - Current Medication List Current Medications: Active Medications Acetaminophen (Tylenol -) 650 mg PO Q6H PRN PRN Reason: FEVER Apixaban (Eliquis -) 2.5 mg PO BID [facility] Last Admin: 12/16/19 10:35 Dose: 2.5 mg Haloperidol (Haldol Injection (Fast Acting) -) 2 mg IM Q6H PRN PRN Reason: AGITATION Last Admin: 12/15/19 23:05 Dose: 2 mg Aztreonam 1 gm/ Dextrose 50 mls @ 100 mls/hr IVPB Q8H-IV IKE; Protocol Last Admin: 12/16/19 17:41 Dose: 100 mls/hr Metoprolol Tartrate (Lopressor Injection -) 5 mg IVPUSH Q4H PRN PRN Reason: TACHYCARDIA Last Admin: 12/13/19 18:15 Dose: 5 mg Metoprolol Tartrate (Lopressor -) 25 mg PO TID IKE Last Admin: 12/16/19 14:38 Dose: 25 mg - Objective Vital Signs: Vital Signs Temperature 98.8 F 12/16/19 10:00 Pulse Rate 89 12/16/19 10:00 Respiratory Rate 22 H 12/16/19 10:00 Blood Pressure 139/88 12/16/19 10:00 O2 Sat by Pulse Oximetry (%) 96 12/16/19 09:00 Constitutional: Yes: No Distress HENT: Yes: Atraumatic Neck: Yes: Supple Cardiovascular: Yes: Regular Rate and Rhythm Respiratory: Yes: CTA Bilaterally Gastrointestinal: Yes: Normal Bowel Sounds Extremities: Yes: Other (cellulitis b/l raji) Edema: No Peripheral Pulses WNL: Yes Neurological: Yes: Alert Labs: CBC, BMP 12/13/19 05:45 12/13/19 05:45 INR, PTT INR 1.12 (0.83-1.09) H 12/12/19 15:00 Problem List - Problems (1) Atrial fibrillation Assessment/Plan: on BB on Ac Code(s): I48.91 - UNSPECIFIED ATRIAL FIBRILLATION Qualifiers: Atrial fibrillation type: unspecified Qualified Code(s): I48.91 - Unspecified atrial fibrillation (2) Cellulitis Assessment/Plan: iv abx improving Code(s): L03.90 - CELLULITIS, UNSPECIFIED Qualifiers: Site of cellulitis: extremity Site of cellulitis of extremity: lower extremity Laterality: unspecified laterality Qualified Code(s): L03.119 - Cellulitis of unspecified part of limb (3) Dementia Assessment/Plan: neuro consult done Code(s): F03.90 - UNSPECIFIED DEMENTIA WITHOUT BEHAVIORAL DISTURBANCE Qualifiers: Dementia type: unspecified type Assessment/Plan spoke with daughter jessika carr in detail
[2019-12-17] MEDS: AZTREONAM 1 GM in DEXTROSE 5%-WATER - 50 ML IVPB SCH ×3 (00:59→18:13)
[2019-12-17] MEDS: METOPROLOL TARTRATE 25 MG TABLET (FP) PO SCH ×3 (06:39→21:06)
[2019-12-17] MEDS ORDERED: AZTREONAM 1 GM VIAL (RESTRICTED TO ID) ONE ×2 (08:34→16:53)
[2019-12-17] MEDS ORDERED: DEXTROSE 5%-WATER - 50 ML IVPB ONE ×2 (08:34→16:54)
[2019-12-17] MEDS: APIXABAN 2.5 MG TABLET PO SCH ×2 (09:11→21:05)
--- NOTE | 2019-12-17 10:01 | PN ---
Progress Note, Physician - Current Medication List Current Medications: Active Medications Acetaminophen (Tylenol -) 650 mg PO Q6H PRN PRN Reason: FEVER Apixaban (Eliquis -) 2.5 mg PO BID [facility] Last Admin: 12/17/19 09:11 Dose: 2.5 mg Haloperidol (Haldol Injection (Fast Acting) -) 2 mg IM Q6H PRN PRN Reason: AGITATION Last Admin: 12/15/19 23:05 Dose: 2 mg Aztreonam 1 gm/ Dextrose 50 mls @ 100 mls/hr IVPB Q8H-IV IKE; Protocol Last Admin: 12/17/19 09:11 Dose: 100 mls/hr Metoprolol Tartrate (Lopressor Injection -) 5 mg IVPUSH Q4H PRN PRN Reason: TACHYCARDIA Last Admin: 12/13/19 18:15 Dose: 5 mg Metoprolol Tartrate (Lopressor -) 25 mg PO TID I[facility] Last Admin: 12/17/19 06:39 Dose: 25 mg - Objective Vital Signs: Vital Signs Temperature 98.1 F 12/17/19 06:00 Pulse Rate 98 H 12/17/19 06:00 Respiratory Rate 20 12/17/19 06:00 Blood Pressure 130/72 12/17/19 06:00 O2 Sat by Pulse Oximetry (%) 97 12/16/19 22:00 Eyes: Yes: WNL, Conjunctiva Clear, EOM Intact HENT: Yes: WNL, Atraumatic, Normocephalic Neck: Yes: WNL, Supple, Trachea Midline Cardiovascular: Yes: Pulse Irregular, S1, S2 Respiratory: Yes: WNL, Regular, CTA Bilaterally Gastrointestinal: Yes: WNL, Normal Bowel Sounds Genitourinary: Yes: WNL Musculoskeletal: Yes: WNL Extremities: Yes: WNL Edema: No Integumentary: Yes: WNL ...Motor Strength: WNL Psychiatric: Yes: WNL Labs: CBC, BMP 12/13/19 05:45 12/13/19 05:45 INR, PTT INR 1.12 (0.83-1.09) H 12/12/19 15:00 Assessment/Plan Problem List - Problems (1) Dementia Code(s): F03.90 - UNSPECIFIED DEMENTIA WITHOUT BEHAVIORAL DISTURBANCE Qualifiers: Dementia type: unspecified type (2) Atrial fibrillation Code(s): I48.91 - UNSPECIFIED ATRIAL FIBRILLATION Qualifiers: Atrial fibrillation type: unspecified Qualified Code(s): I48.91 - Unspecified atrial fibrillation (3) Cellulitis Code(s): L03.90 - CELLULITIS, UNSPECIFIED Qualifiers: Site of cellulitis: extremity Site of cellulitis of extremity: lower extremity Laterality: unspecified laterality Qualified Code(s): L03.119 - Cellulitis of unspecified part of limb Assessment/Plan 12/14/2019 Echocardiography: Normal LV size and fxn, , mod-severe MR, severe TR , severe DAMEON, ALEXIS, mod-severe AR, unable to exclude hemodynamically sig 1. Paroxysmal atrial fibrillation with rapid ventricular response [id number] score of 3-4 2. 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 Diastolic dysfunction with valvular cardiomyopathy, euvolemic 4. Mod-severe MR, severe TR, mod-severe AR, unable to exclude hemodynamically sig 5. HTN 6. Hypercholesterolemia 7. 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 Chronic kidney disease 9. History of psoriasis with superimposed LE cellulitis PLAN: 1. Continue Lopressor 25 tid with dose titration as needed, hemodynamics permitting 2. Considering patient's [id number] score of 3-4 anticoagulation therapy with DOAC's/Eliquis 2.5 bid is recommended 3. Empiric antibiotics as per the primary team Coverage for dr. Shaikh
--- NOTE | 2019-12-17 12:58 | PN ---
Progress Note, Physician - Current Medication List Current Medications: Active Medications Acetaminophen (Tylenol -) 650 mg PO Q6H PRN PRN Reason: FEVER Apixaban (Eliquis -) 2.5 mg PO BID [facility] Last Admin: 12/17/19 09:11 Dose: 2.5 mg Haloperidol (Haldol Injection (Fast Acting) -) 2 mg IM Q6H PRN PRN Reason: AGITATION Last Admin: 12/15/19 23:05 Dose: 2 mg Aztreonam 1 gm/ Dextrose 50 mls @ 100 mls/hr IVPB Q8H-IV IKE; Protocol Last Admin: 12/17/19 09:11 Dose: 100 mls/hr Metoprolol Tartrate (Lopressor Injection -) 5 mg IVPUSH Q4H PRN PRN Reason: TACHYCARDIA Last Admin: 12/13/19 18:15 Dose: 5 mg Metoprolol Tartrate (Lopressor -) 25 mg PO TID [facility] Last Admin: 12/17/19 06:39 Dose: 25 mg - Objective Vital Signs: Vital Signs Temperature 98 F 12/17/19 10:00 Pulse Rate 98 H 12/17/19 10:00 Respiratory Rate 18 12/17/19 10:00 Blood Pressure 108/64 12/17/19 10:00 O2 Sat by Pulse Oximetry (%) 97 12/16/19 22:00 Constitutional: Yes: No Distress HENT: Yes: Atraumatic Neck: Yes: Supple Cardiovascular: Yes: Regular Rate and Rhythm Respiratory: Yes: CTA Bilaterally Extremities: Yes: Other (b/l raji cellulitis) Neurological: Yes: Alert, Oriented Labs: CBC, BMP 12/13/19 05:45 12/13/19 05:45 INR, PTT INR 1.12 (0.83-1.09) H 12/12/19 15:00 Problem List - Problems (1) Atrial fibrillation Assessment/Plan: on BB on Ac Code(s): I48.91 - UNSPECIFIED ATRIAL FIBRILLATION Qualifiers: Atrial fibrillation type: unspecified Qualified Code(s): I48.91 - Unspecified atrial fibrillation (2) Cellulitis Assessment/Plan: iv abx improving Code(s): L03.90 - CELLULITIS, UNSPECIFIED Qualifiers: Site of cellulitis: extremity Site of cellulitis of extremity: lower extremity Laterality: unspecified laterality Qualified Code(s): L03.119 - Cellulitis of unspecified part of limb (3) Dementia Assessment/Plan: neuro consult done Code(s): F03.90 - UNSPECIFIED DEMENTIA WITHOUT BEHAVIORAL DISTURBANCE Qualifiers: Dementia type: unspecified type
--- NOTE | 2019-12-17 15:25 | PN ---
Progress Note, Physician History of Present Illness: Pt is alert, afebrile. Has dull ache in b/l LE, erythema. - Current Medication List Current Medications: Active Medications Acetaminophen (Tylenol -) 650 mg PO Q6H PRN PRN Reason: FEVER Apixaban (Eliquis -) 2.5 mg PO BID [facility] Last Admin: 12/17/19 09:11 Dose: 2.5 mg Haloperidol (Haldol Injection (Fast Acting) -) 2 mg IM Q6H PRN PRN Reason: AGITATION Last Admin: 12/15/19 23:05 Dose: 2 mg Aztreonam 1 gm/ Dextrose 50 mls @ 100 mls/hr IVPB Q8H-IV IKE; Protocol Last Admin: 12/17/19 09:11 Dose: 100 mls/hr Metoprolol Tartrate (Lopressor Injection -) 5 mg IVPUSH Q4H PRN PRN Reason: TACHYCARDIA Last Admin: 12/13/19 18:15 Dose: 5 mg Metoprolol Tartrate (Lopressor -) 25 mg PO TID [facility] Last Admin: 12/17/19 15:12 Dose: 25 mg - Objective Vital Signs: Vital Signs Temperature 98.2 F 12/17/19 14:00 Pulse Rate 105 H 12/17/19 14:00 Respiratory Rate 20 12/17/19 14:00 Blood Pressure 117/69 12/17/19 14:00 O2 Sat by Pulse Oximetry (%) 97 12/17/19 09:00 Constitutional: Yes: No Distress, Calm Cardiovascular: Yes: Pulse Irregular Respiratory: Yes: Regular Gastrointestinal: Yes: Normal Bowel Sounds, Soft Genitourinary: Yes: WNL Extremities: Yes: Erythema (b/l LE erythema, no warmth/tenderness with palpation. Lt dorsal foot ulcer dry) Edema: LLE: 1+, RLE: 1+ Integumentary: Yes: WNL Neurological: Yes: Alert, Oriented Labs: CBC, BMP 12/13/19 05:45 12/13/19 05:45 INR, PTT INR 1.12 (0.83-1.09) H 12/12/19 15:00 Microbiology 12/12/19 15:00 Blood - Peripheral Venous Blood Culture - Preliminary NO GROWTH OBTAINED AFTER 96 HOURS, INCUBATION TO CONTINUE FOR 1 DAYS. 12/12/19 13:50 Blood - Peripheral Venous Blood Culture - Preliminary NO GROWTH OBTAINED AFTER 96 HOURS, INCUBATION TO CONTINUE FOR 1 DAYS. 12/13/19 16:00 Urine - Urine - Catheterized Urine Culture - Final NO GROWTH OBTAINED Problem List - Problems (1) Atrial fibrillation Code(s): I48.91 - UNSPECIFIED ATRIAL FIBRILLATION Qualifiers: Atrial fibrillation type: unspecified Qualified Code(s): I48.91 - Unspecified atrial fibrillation (2) Cellulitis Code(s): L03.90 - CELLULITIS, UNSPECIFIED Qualifiers: Site of cellulitis: extremity Site of cellulitis of extremity: lower extremity Laterality: unspecified laterality Qualified Code(s): L03.119 - Cellulitis of unspecified part of limb Assessment/Plan -- Pt with improvement of erythema of LE b/l but still significant, still edematous -- Will switch to PO if improves
[2019-12-18] MEDS: AZTREONAM 1 GM in DEXTROSE 5%-WATER - 50 ML IVPB SCH ×2 (03:08→11:18)
[2019-12-18] MEDS: METOPROLOL TARTRATE 25 MG TABLET (FP) PO SCH ×3 (07:08→21:03)
--- NOTE | 2019-12-18 10:00 | PN ---
Progress Note, Physician - Current Medication List Current Medications: Active Medications Acetaminophen (Tylenol -) 650 mg PO Q6H PRN PRN Reason: FEVER Apixaban (Eliquis -) 2.5 mg PO BID [facility] Last Admin: 12/17/19 21:05 Dose: Not Given Haloperidol (Haldol Injection (Fast Acting) -) 2 mg IM Q6H PRN PRN Reason: AGITATION Last Admin: 12/15/19 23:05 Dose: 2 mg Aztreonam 1 gm/ Dextrose 50 mls @ 100 mls/hr IVPB Q8H-IV IKE; Protocol Last Admin: 12/18/19 03:08 Dose: Not Given Metoprolol Tartrate (Lopressor Injection -) 5 mg IVPUSH Q4H PRN PRN Reason: TACHYCARDIA Last Admin: 12/13/19 18:15 Dose: 5 mg Metoprolol Tartrate (Lopressor -) 25 mg PO TID [facility] Last Admin: 12/18/19 07:08 Dose: 25 mg - Objective Vital Signs: Vital Signs Temperature 98 F 12/18/19 06:00 Pulse Rate 97 H 12/18/19 06:00 Respiratory Rate 18 12/18/19 06:00 Blood Pressure 135/94 12/18/19 06:00 O2 Sat by Pulse Oximetry (%) 95 12/17/19 21:00 Eyes: Yes: WNL, Conjunctiva Clear, EOM Intact HENT: Yes: WNL, Atraumatic, Normocephalic Neck: Yes: WNL, Supple, Trachea Midline Cardiovascular: Yes: Pulse Irregular, S1, S2 Respiratory: Yes: WNL, Regular, CTA Bilaterally Gastrointestinal: Yes: WNL, Normal Bowel Sounds Genitourinary: Yes: WNL Musculoskeletal: Yes: WNL Extremities: Yes: WNL Edema: No Integumentary: Yes: WNL Neurological: Yes: WNL, Alert, Oriented ...Motor Strength: WNL Psychiatric: Yes: WNL Labs: CBC, BMP 12/13/19 05:45 12/13/19 05:45 INR, PTT INR 1.12 (0.83-1.09) H 12/12/19 15:00 Assessment/Plan Problem List - Problems (1) Dementia Code(s): F03.90 - UNSPECIFIED DEMENTIA WITHOUT BEHAVIORAL DISTURBANCE Qualifiers: Dementia type: unspecified type (2) Atrial fibrillation Code(s): I48.91 - UNSPECIFIED ATRIAL FIBRILLATION Qualifiers: Atrial fibrillation type: unspecified Qualified Code(s): I48.91 - Unspecified atrial fibrillation (3) Cellulitis Code(s): L03.90 - CELLULITIS, UNSPECIFIED Qualifiers: Site of cellulitis: extremity Site of cellulitis of extremity: lower extremity Laterality: unspecified laterality Qualified Code(s): L03.119 - Cellulitis of unspecified part of limb Assessment/Plan 12/14/2019 Echocardiography: Normal LV size and fxn, , mod-severe MR, severe TR , severe DAMEON, ALEXIS, mod-severe AR, unable to exclude hemodynamically sig 1. Paroxysmal atrial fibrillation with rapid ventricular response [id number] score of 3-4 2. 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 Diastolic dysfunction with valvular cardiomyopathy, euvolemic 4. Mod-severe MR, severe TR, mod-severe AR, unable to exclude hemodynamically sig 5. HTN 6. Hypercholesterolemia 7. 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 Chronic kidney disease 9. History of psoriasis with superimposed LE cellulitis PLAN: 1. Continue Lopressor 25 tid with dose titration as needed, hemodynamics permitting 2. Considering patient's [id number] score of 3-4 anticoagulation therapy with DOAC's/Eliquis 2.5 bid is recommended 3. Empiric antibiotics as per the primary team Coverage for dr. Shaikh
[2019-12-18] MEDS ORDERED: AZTREONAM 1 GM VIAL (RESTRICTED TO ID) ONE (11:16)
[2019-12-18] MEDS ORDERED: DEXTROSE 5%-WATER - 50 ML IVPB ONE (11:16)
[2019-12-18] MEDS: APIXABAN 2.5 MG TABLET PO SCH ×2 (11:18→21:03)
--- NOTE | 2019-12-18 14:33 | PN ---
Progress Note, Physician History of Present Illness: Pt is alert, afebrile. b/l LE erythema/edema improving. Denies pain. Remains afebrile. - Current Medication List Current Medications: Active Medications Acetaminophen (Tylenol -) 650 mg PO Q6H PRN PRN Reason: FEVER Apixaban (Eliquis -) 2.5 mg PO BID [facility] Last Admin: 12/18/19 11:18 Dose: 2.5 mg Haloperidol (Haldol Injection (Fast Acting) -) 2 mg IM Q6H PRN PRN Reason: AGITATION Last Admin: 12/15/19 23:05 Dose: 2 mg Aztreonam 1 gm/ Dextrose 50 mls @ 100 mls/hr IVPB Q8H-IV IKE; Protocol Last Admin: 12/18/19 11:18 Dose: 100 mls/hr Metoprolol Tartrate (Lopressor Injection -) 5 mg IVPUSH Q4H PRN PRN Reason: TACHYCARDIA Last Admin: 12/13/19 18:15 Dose: 5 mg Metoprolol Tartrate (Lopressor -) 25 mg PO TID [facility] Last Admin: 12/18/19 07:08 Dose: 25 mg - Objective Vital Signs: Vital Signs Temperature 98 F 12/18/19 06:00 Pulse Rate 97 H 12/18/19 06:00 Respiratory Rate 18 12/18/19 06:00 Blood Pressure 135/94 12/18/19 06:00 O2 Sat by Pulse Oximetry (%) 95 12/17/19 21:00 Constitutional: Yes: No Distress, Calm Cardiovascular: Yes: Pulse Irregular Respiratory: Yes: Regular Gastrointestinal: Yes: Normal Bowel Sounds, Soft Genitourinary: Yes: WNL Integumentary: Yes: Erythema (b/l foot less edematous, less erythema, Lt dorsal foot ulcer dry, no warmth) Neurological: Yes: Alert Labs: CBC, BMP 12/13/19 05:45 12/13/19 05:45 INR, PTT INR 1.12 (0.83-1.09) H 12/12/19 15:00 Microbiology 12/12/19 15:00 Blood - Peripheral Venous Blood Culture - Final NO GROWTH AFTER 5 DAYS INCUBATION 12/12/19 13:50 Blood - Peripheral Venous Blood Culture - Final NO GROWTH AFTER 5 DAYS INCUBATION 12/13/19 16:00 Urine - Urine - Catheterized Urine Culture - Final NO GROWTH OBTAINED Problem List - Problems (1) Atrial fibrillation Code(s): I48.91 - UNSPECIFIED ATRIAL FIBRILLATION Qualifiers: Atrial fibrillation type: unspecified Qualified Code(s): I48.91 - Unspecified atrial fibrillation (2) Cellulitis Code(s): L03.90 - CELLULITIS, UNSPECIFIED Qualifiers: Site of cellulitis: extremity Site of cellulitis of extremity: lower extremity Laterality: unspecified laterality Qualified Code(s): L03.119 - Cellulitis of unspecified part of limb Assessment/Plan Cellulitis b/l LE Paroxysmal AFIB HTN HLD Dementia CKD Psoriasis -- erythema/edema of LE b/l improving -- on Aztreonam D#7, will switch to clindamycin 300 mg po TID x one more week -- continue monitor for resolution
--- NOTE | 2019-12-18 16:03 | PN ---
Progress Note, Physician - Current Medication List Current Medications: Active Medications Acetaminophen (Tylenol -) 650 mg PO Q6H PRN PRN Reason: FEVER Apixaban (Eliquis -) 2.5 mg PO BID [facility] Last Admin: 12/18/19 11:18 Dose: 2.5 mg Clindamycin HCl (Cleocin -) 300 mg PO TID [facility] Haloperidol (Haldol Injection (Fast Acting) -) 2 mg IM Q6H PRN PRN Reason: AGITATION Last Admin: 12/15/19 23:05 Dose: 2 mg Metoprolol Tartrate (Lopressor Injection -) 5 mg IVPUSH Q4H PRN PRN Reason: TACHYCARDIA Last Admin: 12/13/19 18:15 Dose: 5 mg Metoprolol Tartrate (Lopressor -) 25 mg PO TID [facility] Last Admin: 12/18/19 15:25 Dose: 25 mg - Objective Vital Signs: Vital Signs Temperature 98 F 12/18/19 06:00 Pulse Rate 97 H 12/18/19 06:00 Respiratory Rate 18 12/18/19 06:00 Blood Pressure 135/94 12/18/19 06:00 O2 Sat by Pulse Oximetry (%) 95 12/17/19 21:00 Constitutional: Yes: No Distress HENT: Yes: Atraumatic Neck: Yes: Supple Cardiovascular: Yes: Regular Rate and Rhythm Respiratory: Yes: CTA Bilaterally Extremities: Yes: Other (b/l raji cellulitis) Neurological: Yes: Alert, Oriented Labs: CBC, BMP 12/13/19 05:45 12/13/19 05:45 INR, PTT INR 1.12 (0.83-1.09) H 12/12/19 15:00 Problem List - Problems (1) Atrial fibrillation Assessment/Plan: on BB on Ac Code(s): I48.91 - UNSPECIFIED ATRIAL FIBRILLATION Qualifiers: Atrial fibrillation type: unspecified Qualified Code(s): I48.91 - Unspecified atrial fibrillation (2) Cellulitis Assessment/Plan: po abx improving Code(s): L03.90 - CELLULITIS, UNSPECIFIED Qualifiers: Site of cellulitis: extremity Site of cellulitis of extremity: lower extremity Laterality: unspecified laterality Qualified Code(s): L03.119 - Cellulitis of unspecified part of limb (3) Dementia Assessment/Plan: neuro consult done Code(s): F03.90 - UNSPECIFIED DEMENTIA WITHOUT BEHAVIORAL DISTURBANCE Qualifiers: Dementia type: unspecified type
[2019-12-18] MEDS: CLINDAMYCIN HCL 150 MG CAPSULE (FP) PO SCH (19:30)
[2019-12-19] MEDS: METOPROLOL TARTRATE 25 MG TABLET (FP) PO SCH ×4 (06:53→21:40)
[2019-12-19] MEDS: CLINDAMYCIN HCL 150 MG CAPSULE (FP) PO SCH ×3 (06:53→21:13)
[2019-12-19] MEDS: APIXABAN 2.5 MG TABLET PO SCH ×2 (09:49→21:13)
--- NOTE | 2019-12-19 10:50 | PN ---
Progress Note, Physician Chief Complaint: Events noted Awake Not in distress History of Present Illness: Patient was seen and examined. Awake with underlying dementia. Chart was reviewed Denies chest pain, SOB or palpitations - Current Medication List Current Medications: Active Medications Acetaminophen (Tylenol -) 650 mg PO Q6H PRN PRN Reason: FEVER Apixaban (Eliquis -) 2.5 mg PO BID [facility] Last Admin: 12/19/19 09:49 Dose: 2.5 mg Clindamycin HCl (Cleocin -) 300 mg PO TID [facility] Last Admin: 12/19/19 06:53 Dose: 300 mg Haloperidol (Haldol Injection (Fast Acting) -) 2 mg IM Q6H PRN PRN Reason: AGITATION Last Admin: 12/15/19 23:05 Dose: 2 mg Metoprolol Tartrate (Lopressor Injection -) 5 mg IVPUSH Q4H PRN PRN Reason: TACHYCARDIA Last Admin: 12/13/19 18:15 Dose: 5 mg Metoprolol Tartrate (Lopressor -) 25 mg PO TID [facility] Last Admin: 12/19/19 06:53 Dose: 25 mg - Objective Vital Signs: Vital Signs Temperature 97.5 F L 12/19/19 09:53 Pulse Rate 95 H 12/19/19 09:53 Respiratory Rate 18 12/19/19 09:53 Blood Pressure 122/67 12/19/19 09:53 O2 Sat by Pulse Oximetry (%) 95 12/18/19 21:00 Eyes: Yes: PERRL HENT: Yes: Atraumatic Neck: Yes: Supple Cardiovascular: Yes: Regular Rate and Rhythm, Murmur (SM), S1, S2 Respiratory: Yes: Diminished Gastrointestinal: Yes: Normal Bowel Sounds, Soft. No: Tenderness Edema: Yes Problem List - Problems (1) HTN (hypertension) Code(s): I10 - ESSENTIAL (PRIMARY) HYPERTENSION (2) Hypercholesterolemia Code(s): E78.00 - PURE HYPERCHOLESTEROLEMIA, UNSPECIFIED (3) Mitral valve regurgitation Code(s): I34.0 - NONRHEUMATIC MITRAL (VALVE) INSUFFICIENCY Qualifiers: Cardiac valve disease etiology: nonrheumatic Qualified Code(s): I34.0 - Nonrheumatic mitral (valve) insufficiency (4) Tricuspid valve regurgitation Code(s): I07.1 - RHEUMATIC TRICUSPID INSUFFICIENCY Qualifiers: Cardiac valve disease etiology: nonrheumatic Qualified Code(s): I36.1 - Nonrheumatic tricuspid (valve) insufficiency (5) Aortic valve regurgitation Code(s): I35.1 - NONRHEUMATIC AORTIC (VALVE) INSUFFICIENCY Qualifiers: Cardiac valve disease etiology: nonrheumatic Qualified Code(s): I35.1 - Nonrheumatic aortic (valve) insufficiency (6) Atrial fibrillation Code(s): I48.91 - UNSPECIFIED ATRIAL FIBRILLATION Qualifiers: Atrial fibrillation type: unspecified Qualified Code(s): I48.91 - Unspecified atrial fibrillation (7) Dementia Code(s): F03.90 - UNSPECIFIED DEMENTIA WITHOUT BEHAVIORAL DISTURBANCE Qualifiers: Dementia type: unspecified type Assessment/Plan 1. Paroxysmal atrial fibrillation with variable ventricular response [id number] score of 3-4 2. Probable coronary artery disease, angina pectoris 3. Diastolic dysfunction with valvular cardiomyopathy, euvolemic 4. Moderate-severe MR, severe TR, moderate-severe AR, unable to exclude hemodynamically significant 5. HTN 6. Hypercholesterolemia 7. 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 Chronic kidney disease 9. History of psoriasis with superimposed LE cellulitis PLAN: 1. Continue Lopressor 25 mg TID with dose titration as needed, hemodynamics permitting. IV Lopressor as needed in addition 2. DOAC/Eliquis 2.5 mg BID in view of stroke risk with the presence of PAF Supportive care Garcia Shaikh MD
--- NOTE | 2019-12-19 16:29 | PN ---
Progress Note, Physician History of Present Illness: stable no new issues - Current Medication List Current Medications: Active Medications Acetaminophen (Tylenol -) 650 mg PO Q6H PRN PRN Reason: FEVER Apixaban (Eliquis -) 2.5 mg PO BID [facility] Last Admin: 12/19/19 09:49 Dose: 2.5 mg Clindamycin HCl (Cleocin -) 300 mg PO TID [facility] Last Admin: 12/19/19 15:00 Dose: Not Given Haloperidol (Haldol Injection (Fast Acting) -) 2 mg IM Q6H PRN PRN Reason: AGITATION Last Admin: 12/15/19 23:05 Dose: 2 mg Metoprolol Tartrate (Lopressor Injection -) 5 mg IVPUSH Q4H PRN PRN Reason: TACHYCARDIA Last Admin: 12/13/19 18:15 Dose: 5 mg Metoprolol Tartrate (Lopressor -) 25 mg PO TID [facility] Last Admin: 12/19/19 14:59 Dose: Not Given - Objective Vital Signs: Vital Signs Temperature 97.8 F 12/19/19 14:00 Pulse Rate 97 H 12/19/19 14:00 Respiratory Rate 18 12/19/19 14:00 Blood Pressure 135/92 12/19/19 14:00 O2 Sat by Pulse Oximetry (%) 95 12/19/19 09:00 Constitutional: Yes: No Distress, Calm Cardiovascular: Yes: S1, S2 Gastrointestinal: Yes: Normal Bowel Sounds, Soft Musculoskeletal: Yes: Other Extremities: Yes: Other Neurological: Yes: Alert, Other Labs: CBC, BMP 12/13/19 05:45 12/13/19 05:45 INR, PTT INR 1.12 (0.83-1.09) H 12/12/19 15:00 Assessment/Plan Problem List - Problems (1) Atrial fibrillation Code(s): I48.91 - UNSPECIFIED ATRIAL FIBRILLATION Qualifiers: Atrial fibrillation type: unspecified Qualified Code(s): I48.91 - Unspecified atrial fibrillation (2) Cellulitis Code(s): L03.90 - CELLULITIS, UNSPECIFIED Qualifiers: Site of cellulitis: extremity Site of cellulitis of extremity: lower extremity Laterality: unspecified laterality Qualified Code(s): L03.119 - Cellulitis of unspecified part of limb swelling of the legs dementia plan clinda complete the course
--- NOTE | 2019-12-19 18:15 | PN ---
Progress Note, Physician - Current Medication List Current Medications: Active Medications Acetaminophen (Tylenol -) 650 mg PO Q6H PRN PRN Reason: FEVER Apixaban (Eliquis -) 2.5 mg PO BID [facility] Last Admin: 12/19/19 09:49 Dose: 2.5 mg Clindamycin HCl (Cleocin -) 300 mg PO TID [facility] Last Admin: 12/19/19 15:00 Dose: Not Given Haloperidol (Haldol Injection (Fast Acting) -) 2 mg IM Q6H PRN PRN Reason: AGITATION Last Admin: 12/15/19 23:05 Dose: 2 mg Metoprolol Tartrate (Lopressor Injection -) 5 mg IVPUSH Q4H PRN PRN Reason: TACHYCARDIA Last Admin: 12/13/19 18:15 Dose: 5 mg Metoprolol Tartrate (Lopressor -) 25 mg PO TID [facility] Last Admin: 12/19/19 14:59 Dose: Not Given - Objective Vital Signs: Vital Signs Temperature 97.8 F 12/19/19 14:00 Pulse Rate 110 H 12/19/19 17:13 Respiratory Rate 18 12/19/19 17:13 Blood Pressure 138/88 12/19/19 17:13 O2 Sat by Pulse Oximetry (%) 95 12/19/19 09:00 Constitutional: Yes: No Distress HENT: Yes: Atraumatic Neck: Yes: Supple Cardiovascular: Yes: Regular Rate and Rhythm Respiratory: Yes: CTA Bilaterally Extremities: Yes: WNL Edema: No Neurological: Yes: Alert, Oriented Labs: CBC, BMP 12/13/19 05:45 12/13/19 05:45 INR, PTT INR 1.12 (0.83-1.09) H 12/12/19 15:00 Problem List - Problems (1) Atrial fibrillation Assessment/Plan: on BB on Ac Code(s): I48.91 - UNSPECIFIED ATRIAL FIBRILLATION Qualifiers: Atrial fibrillation type: unspecified Qualified Code(s): I48.91 - Unspecified atrial fibrillation (2) Cellulitis Assessment/Plan: po abx improving Code(s): L03.90 - CELLULITIS, UNSPECIFIED Qualifiers: Site of cellulitis: extremity Site of cellulitis of extremity: lower extremity Laterality: unspecified laterality Qualified Code(s): L03.119 - Cellulitis of unspecified part of limb (3) Dementia Assessment/Plan: neuro consult done Code(s): F03.90 - UNSPECIFIED DEMENTIA WITHOUT BEHAVIORAL DISTURBANCE Qualifiers: Dementia type: unspecified type
--- NOTE | 2019-12-19 20:52 | DS ---
Physical Examination Vital Signs: Vital Signs Temperature 97.8 F 12/19/19 14:00 Pulse Rate 110 H 12/19/19 17:13 Respiratory Rate 18 12/19/19 17:13 Blood Pressure 138/88 12/19/19 17:13 O2 Sat by Pulse Oximetry (%) 95 12/19/19 09:00 Labs: CBC, BMP 12/13/19 05:45 12/13/19 05:45 Discharge Summary Problems reviewed: Yes Reason For Visit: ATRIAL FIBRILLATION Current Active Problems Aortic valve regurgitation (Acute) Atrial fibrillation (Acute) Cellulitis (Acute) Dementia (Acute) HTN (hypertension) (Acute) Hypercholesterolemia (Acute) Mitral valve regurgitation (Acute) Tricuspid valve regurgitation (Acute) - Instructions - Home Medications Comprehensive Discharge Medication List: Ambulatory Orders Apixaban [Eliquis -] 2.5 mg PO BID #60 tablet 12/18/19 Clindamycin [Cleocin -] 300 mg PO TID #21 capsule 12/18/19 Metoprolol Tartrate [Lopressor -] 25 mg PO TID #90 tablet 12/18/19
[2019-12-20] MEDS: CLINDAMYCIN HCL 150 MG CAPSULE (FP) PO SCH (06:01)
[2019-12-20] MEDS: METOPROLOL TARTRATE 25 MG TABLET (FP) PO SCH (06:02)
[2019-12-20 10:02] VITALS: BP 112/64; PULSE 85; TEMP 97.5
[2019-12-20] MEDS: APIXABAN 2.5 MG TABLET PO SCH (10:09)
--- NOTE | 2019-12-20 10:22 | PN ---
Progress Note, Physician Chief Complaint: Events noted Not in distress History of Present Illness: Patient was seen and examined. Awake with underlying dementia. Chart was reviewed Denies chest pain, SOB or palpitations - Current Medication List Current Medications: Active Medications Acetaminophen (Tylenol -) 650 mg PO Q6H PRN PRN Reason: FEVER Apixaban (Eliquis -) 2.5 mg PO BID [facility] Last Admin: 12/20/19 10:09 Dose: 2.5 mg Clindamycin HCl (Cleocin -) 300 mg PO TID [facility] Last Admin: 12/20/19 06:01 Dose: 300 mg Haloperidol (Haldol Injection (Fast Acting) -) 2 mg IM Q6H PRN PRN Reason: AGITATION Last Admin: 12/15/19 23:05 Dose: 2 mg Metoprolol Tartrate (Lopressor Injection -) 5 mg IVPUSH Q4H PRN PRN Reason: TACHYCARDIA Last Admin: 12/13/19 18:15 Dose: 5 mg Metoprolol Tartrate (Lopressor -) 25 mg PO TID [facility] Last Admin: 12/20/19 06:02 Dose: 25 mg - Objective Vital Signs: Vital Signs Temperature 97.5 F L 12/20/19 09:57 Pulse Rate 85 12/20/19 09:57 Respiratory Rate 18 12/20/19 09:57 Blood Pressure 112/64 12/20/19 09:57 O2 Sat by Pulse Oximetry (%) 95 12/20/19 09:00 Neck: Yes: Supple Cardiovascular: Yes: Regular Rate and Rhythm, Murmur (SM), S1, S2 Respiratory: Yes: Diminished Gastrointestinal: Yes: Normal Bowel Sounds, Soft. No: Tenderness Edema: No Problem List - Problems (1) HTN (hypertension) Code(s): I10 - ESSENTIAL (PRIMARY) HYPERTENSION (2) Hypercholesterolemia Code(s): E78.00 - PURE HYPERCHOLESTEROLEMIA, UNSPECIFIED (3) Mitral valve regurgitation Code(s): I34.0 - NONRHEUMATIC MITRAL (VALVE) INSUFFICIENCY Qualifiers: Cardiac valve disease etiology: nonrheumatic Qualified Code(s): I34.0 - Nonrheumatic mitral (valve) insufficiency (4) Tricuspid valve regurgitation Code(s): I07.1 - RHEUMATIC TRICUSPID INSUFFICIENCY Qualifiers: Cardiac valve disease etiology: nonrheumatic Qualified Code(s): I36.1 - Nonrheumatic tricuspid (valve) insufficiency (5) Aortic valve regurgitation Code(s): I35.1 - NONRHEUMATIC AORTIC (VALVE) INSUFFICIENCY Qualifiers: Cardiac valve disease etiology: nonrheumatic Qualified Code(s): I35.1 - Nonrheumatic aortic (valve) insufficiency (6) Atrial fibrillation Code(s): I48.91 - UNSPECIFIED ATRIAL FIBRILLATION Qualifiers: Atrial fibrillation type: unspecified Qualified Code(s): I48.91 - Unspecified atrial fibrillation (7) Dementia Code(s): F03.90 - UNSPECIFIED DEMENTIA WITHOUT BEHAVIORAL DISTURBANCE Qualifiers: Dementia type: unspecified type Assessment/Plan 1. Paroxysmal atrial fibrillation with variable ventricular response [id number] score of 3-4 2. Probable coronary artery disease, angina pectoris 3. Diastolic dysfunction with valvular cardiomyopathy, euvolemic 4. Moderate-severe MR, severe TR, moderate-severe AR, unable to exclude hemodynamically significant 5. HTN 6. Hypercholesterolemia 7. 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 Chronic kidney disease 9. History of psoriasis with superimposed LE cellulitis PLAN: 1. Continue Lopressor 25 mg TID with dose titration as needed. IV Lopressor as needed in addition 2. DOAC/Eliquis 2.5 mg BID in view of stroke risk with the presence of PAF Supportive care Garcia Shaikh MD
--- NOTE | 2019-12-20 19:07 | DS ---
Physical Examination Vital Signs: Vital Signs Temperature 97.5 F L 12/20/19 09:57 Pulse Rate 85 12/20/19 09:57 Respiratory Rate 18 12/20/19 09:57 Blood Pressure 112/64 12/20/19 09:57 O2 Sat by Pulse Oximetry (%) 95 12/20/19 09:00 Constitutional: Yes: No Distress HENT: Yes: Atraumatic Neck: Yes: Supple Cardiovascular: Yes: Regular Rate and Rhythm Respiratory: Yes: CTA Bilaterally Gastrointestinal: Yes: Normal Bowel Sounds Extremities: Yes: WNL Edema: No Neurological: Yes: Alert Labs: CBC, BMP 12/13/19 05:45 12/13/19 05:45 Discharge Summary Problems reviewed: Yes Reason For Visit: ATRIAL FIBRILLATION Condition: Stable - Instructions Disposition: PHYSICAL REHABILATION FACILITY - Home Medications Comprehensive Discharge Medication List: Ambulatory Orders Apixaban [Eliquis -] 2.5 mg PO BID #60 tablet 12/18/19 Clindamycin [Cleocin -] 300 mg PO TID #21 capsule 12/18/19 Metoprolol Tartrate [Lopressor -] 25 mg PO TID #90 tablet 12/18/19 [facility]
== END 2019-12-20 10:40 | DRG 602 ==
LOC: JER 13:32 → JERBED 18:51 → J4W 23:12
PROVIDERS: ADMIT Internal Medicine; ATTEND Internal Medicine
DX: L03.116 Cellulitis of left lower limb (principal); G93.41 Metabolic encephalopathy; I42.9 Cardiomyopathy, unspecified; F03.91 Unspecified dementia, unspecified severity, with behavioral disturbance; L03.115 Cellulitis of right lower limb; I48.0 Paroxysmal atrial fibrillation; I10 Essential (primary) hypertension; N18.9 Chronic kidney disease, unspecified; E78.00 Pure hypercholesterolemia, unspecified; W19.XXXA Unspecified fall, initial encounter; I25.119 Atherosclerotic heart disease of native coronary artery with unspecified angina pectoris; E78.5 Hyperlipidemia, unspecified; I34.0 Nonrheumatic mitral (valve) insufficiency; I35.1 Nonrheumatic aortic (valve) insufficiency; I36.1 Nonrheumatic tricuspid (valve) insufficiency; L40.9 Psoriasis, unspecified
CPT/HCPCS: 36415; 70450-TC; 71045-TC-FY; 71046-TC-FY; 72125-TC; 73590-TC-LT-FY; 73590-TC-RT-FY; 73610-TC-LT-FY; 73610-TC-RT-FY; 73630-TC-LT; 73630-TC-RT-FY; 80053; 81003; 82550; 82553; 82607; 82803; 83605; 84484; 85025; 85610; 85730; 87040; 87086; 93005; 93010; 93306-TC; 97116-GP; 97161-GP; 99285-25; J1644; J7030